=== PATIENT | female | born 1945 | race Caucasian/White ===

== ENCOUNTER 2020-04-15 07:41 | Inpatient (IN) | payer MEDICARE, OTHER ==
--- NOTE | 2020-04-15 07:44 | EDM.PDOC ---
ED HPI GENERAL MEDICAL PROBLEM - General Chief Complaint: Trauma Stated Complaint: fall Time Seen by Provider: 04/15/20 07:45 Source of Information: Reports: Patient, EMS, Old Records, RN, RN Notes Reviewed History Limitations: Reports: Other - History of Present Illness INITIAL COMMENTS - FREE TEXT/NARRATIVE: Pt arrives to ER from home by [facility] with report that at 0700HRS she felt lightheaded, fall and struck the back left side of her head resulting in a laceration. Pt admits to lightheadedness, but denies being off balance or "room spin" dizziness. Family members reported to EMS that pt seems to have slurred speech immediately following the fall, but she speech was clear by the time EMS arrived. The EMS team could not determine if the pt might have had a stroke or not, but due to daily Aspirin and the head injury, they did make her a trauma alert. Pt denies any injury other than her head. She denies neck pain, chest pain, shortness of breath, current dizziness or lightheadedness. She does have a history of syncope. Pt remembers the fall. Family reported pt had LOC to EMS, but pt states no LOC, as remembers everything. Later, pt also c/o lower right rib pain. TRAUMA: ARRIVAL TIME: 0744HRS C-COLLAR STATUS: No c-collar GCS ON ARRIVAL: 15 LONG SPINAL BOARD STATUS: No long spine board Onset: Today, Sudden Onset Date: 04/15/20 Onset Time: 07:00 Location: Reports: Head Quality: Reports: Ache Severity: Mild Improves with: Reports: None Worsens with: Reports: None Associated Symptoms: Reports: No Other Symptoms - Related Data Allergies Allergy/AdvReac Type Severity Reaction Status Date / Time Penicillins Allergy Rash Verified 04/24/14 10:46 Home Meds: Home Meds Aspirin [Ecotrin EC] 1 tab PO DAILY 04/24/14 [History] Metoprolol Succinate [Toprol Xl] 1 tab PO BID 04/24/14 [History] Multivitamin/Iron/Folic Acid [Multi-Day Plus Iron Tablet] 1 tab PO DAILY 04/24/14 [History] Past Medical History HEENT History: Reports: Impaired Vision (Wears glasses) Cardiovascular History: Reports: Hypertension, Syncope Social & Family History - Family History Family Medical History: No Pertinent Family History - Living Situation & Occupation Living situation: Reports: , Alone Occupation: Employed Review of Systems - Review of Systems Review Of Systems: Comprehensive ROS is negative, except as noted in HPI. ED EXAM, GENERAL - Physical Exam Exam: See Below Free Text/Narrative:: PRIMARY TRAUMA SURVEY (0749HRS): AIRWAY: Patent nasal and oral airways, conversant with normal speech, no evidence of airway obstruction. BREATHING: Spontaneous respirations, symmetric chest rise and fall, non-labored breathing. CIRCULATION: No central, peripheral, or perioral cyanosis. Heart regular rate and rhythm, non-muffled, no murmur. Intact distal pulses and capillary refill x all 4 distal extremities. DEFORMITY/DISABILITY: Head normal cephalic, 1.5cm linear laceration to left posterior scalp; Neck no c-collar on arrival. C-spine cleared by history and exam, confirmed by CT. Chest with mild right lower chest wall tenderness. Abdomen soft, non-tender, benign to exam. Pelvis stable. Upper extremities non- tender, atraumatic. Lower extremities non-tender, atraumatic. No active bleeding, no long bone deformities. No acute motor or sensory deficits. CN II- XII intact. GCS 15 on arrival. EXPOSURE: Skin warm and dry. SECONDARY TRAUMA SURVEY (810HRS): see below Exam Limited By: No Limitations General Appearance: Alert, WD/WN, No Apparent Distress Eye Exam: Bilateral Eye: EOMI, Normal Inspection, PERRL Nose: Normal Inspection, Normal Mucosa, No Blood Throat/Mouth: Normal Inspection, Normal Lips, Normal Teeth, Normal Gums, Normal Oropharynx, Normal Voice, No Airway Compromise Head: Normocephalic, Other (Scalp laceration) Neck: Normal Inspection, Supple, Non-Tender, Full Range of Motion Respiratory/Chest: No Respiratory Distress, Lungs Clear, Normal Breath Sounds, No Accessory Muscle Use, Chest Non-Tender Cardiovascular: Normal Peripheral Pulses, Regular Rate, Rhythm, No Edema, No Gallop, No JVD, No Murmur, No Rub GI/Abdominal: Normal Bowel Sounds, Soft, Non-Tender, No Organomegaly, No Distention, No Abnormal Bruit, No Mass Back Exam: Normal Inspection, Full Range of Motion, NT Extremities: Normal Inspection, Normal Range of Motion, Non-Tender, Normal Ca pillary Refill, No Pedal Edema Neurological: Alert, Oriented, CN II-XII Intact, Normal Cognition, Normal Gait, No Motor/Sensory Deficits, Other (GCS at 1 hour: 15) Psychiatric: Normal Affect, Normal Mood Skin Exam: Warm, Dry, Normal Color, No Rash, Wound/Incision (Left occipital scalp has a 1.25cm linear laceration to depth of subcutaneous tissue.) ED TRAUMA PROCEDURES - Laceration/Wound Repair Left Posterior Head Lac/Wound Length In cm: 1.3 Appearance: Subcutaneous, Linear Distal NVT: Neuro & Vascular Intact Anesthetic Type: Local Local Anesthesia - Bupivicaine (Marcaine): Other (1% with EPI) Local Anesthetic Volume: 4cc Skin Prep: Chlorhexidine (Hibiciens), Saline Saline Irrigation (cc's): 250 Exploration/Debridement/Repair: Wound Explored, In a Bloodless Field, Explored to Base Closed With: [place] # of Sutures: 4 (tona) Suture Type: Interrupted Drain Placement: No Sterile Dressing Applied: None Tetanus Status Addressed: Yes Complications: No #1 Interpretation EKG Date: 04/15/20 Time: 08:02 Rhythm: Other (SR) Rate (Beats/Min): 65 Vancourt: Normal P-Wave: Present (Possible left atrial enlargement) QRS: Normal ST-T: Normal QT: Normal Comparison: No Change Course - Vital Signs Last Recorded V/S: VS on paper trauma chart: reviewed by me - Orders/Labs/Meds Orders: Active Orders 24 hr Category Date Time Status Blood Glucose Check, Bedside [RC] ONETIME Care 04/15/20 07:44 Active EKG 12 Lead [EKG Documentation Completion] [RC] STAT Care 04/15/20 07:44 Active Orthostatic Vital Signs [RC] ASDIRECTED Care 04/15/20 08:00 Active Peripheral IV Care [RC] . DIRECTED Care 04/15/20 07:45 Active Vaccines to be Administered [RC] PER UNIT ROUTINE Care 04/15/20 07:59 Active DRUG SCREEN URINE BIORAD [URCHEM] Stat Lab 04/15/20 07:44 Ordered UA RFX WYATT AND CULT IF INDIC [URIN] Stat Lab 04/15/20 07:45 Ordered Sodium Chloride 0.9% [Saline Flush] Med 04/15/20 07:44 Active 10 ml FLUSH ASDIRECTED PRN Peripheral IV Insertion Adult [OM.PC] Stat Oth 04/15/20 07:45 Ordered Medication Orders Sodium Chloride (Saline Flush) 10 ml FLUSH ASDIRECTED PRN PRN Reason: Keep Vein Open Last Admin: 04/15/20 08:38 Dose: 10 ml Documented by: DELISA Labs: Laboratory Tests 04/15/20 04/15/20 04/15/20 Range/Units 07:59 07:59 07:59 WBC 6.2 (5.0-10.0) 10^3/uL RBC 4.40 (4.2-5.4) 10^6/uL Hgb 12.5 (12.0-16.0) g/dL Hct 37.4 (37.0-47.0) % MCV 85.0 (80-100) fL MCH 28.4 (27.0-34.0) pg MCHC 33.4 (33.0-35.0) g/dL Plt Count 223 (150-450) 10^3/uL Neut % (Auto) 62.5 (42.2-75.2) % Lymph % (Auto) 20.1 L (20.5-50.1) % Roberts % (Auto) 12.8 H (2-8) % Eos % (Auto) 4.4 H (1.0-3.0) % Baso % (Auto) 0.2 (0.0-1.0) % Add Manual Diff Yes Neutrophils % (Manual) 59 (42-75) % Band Neutrophils % 8 % Lymphocytes % (Manual) 17 L (20-50) % Monocytes % (Manual) 11 H (2-8) % Eosinophils % (Manual) 5 H (1-3) % PT 10.0 (9.0-12.0) SEC INR 1.1 (0.9-1.2) APTT 24.1 (22.0-34.0) SEC Sodium 139 (136-145) mmol/L Potassium 3.4 L (3.5-5.1) mmol/L Chloride 100 (98-107) mmol/L Carbon Dioxide 30 (21-32) mmol/L Anion Gap 12.4 (7-13) mEq/L BUN 21 H (7-18) mg/dL Creatinine 0.91 (0.55-1.02) mg/dL Est Cr Clr Drug Dosing TNP Estimated GFR (MDRD) > 60 BUN/Creatinine Ratio 23.1 (No establ ref range) Glucose 101 H (74-99) mg/dL Calcium 9.2 (8.5-10.1) mg/dL Total Bilirubin 0.6 (0.2-1.0) mg/dL AST 18 (15-37) U/L ALT 23 (14-59) U/L Alkaline Phosphatase 38 L (46-116) U/L Troponin I < 0.017 (0.000-0.056) ng/mL C-Reactive Protein 0.5 (0.0-0.9) mg/dL Total Protein 7.7 (6.4-8.2) g/dL Albumin 3.8 (3.4-5.0) g/dL Globulin 3.9 Albumin/Globulin Ratio 1.0 Amylase 36 (25-115) U/L Lipase 54 L (73-393) U/L Ethyl Alcohol < 3 (0) mg/dL Meds: Medications Generic Name Dose Route Start Last Admin Trade Name Freq PRN Reason Stop Dose Admin Sodium Chloride 10 ml 04/15/20 07:44 04/15/20 08:38 Saline Flush FLUSH 10 ml ASDIRECTED PRN Administration Keep Vein Open Discontinued Medications Generic Name Dose Route Start Last Admin Trade Name Freq PRN Reason Stop Dose Admin Acetaminophen 650 mg 04/15/20 08:43 04/15/20 08:52 Tylenol PO 04/15/20 08:44 650 mg NOW ONE Administration Diphtheria/Tetanus/Acell Pertussis 0.5 ml 04/15/20 07:59 04/15/20 08:37 Boostrix IM 04/15/20 08:00 0.5 ml .ONCE ONE Administration Sodium Chloride 1,000 mls @ 999 mls/hr 04/15/20 08:00 04/15/20 08:37 Normal Saline IV 04/15/20 09:00 999 mls/hr .BOLUS ONE Administration Lidocaine/Epinephrine 20 ml 04/15/20 07:59 04/15/20 08:37 Xylocaine 1% With Epinephrine 1:100,000 INFILT 04/15/20 08:00 20 ml ONETIME ONE Administration - Radiology Interpretation Free Text/Narrative:: [facility] [place] [facility] Final Radiology Report Call: [phone] assistance Online chat: [email or web address] Name: QUANG SCANLON Age: 74Years F Date: 04/15/2020 SSN: -- : 1945 Study: CT HEAD WO CONT Requesting Physician: MARIAH BA Images: 139 Addl Studies: Provided Clinical History: Fall, syncope, slurred speech, hit head Contrast: Without Contrast Medium: Contrast Amount: Contrast Method: Page 1 of 2 PROCEDURE INFORMATION: Exam: CT Head Without Contrast Exam date and time: 04/15/2020 7:48 AM Age: 74 years old Clinical indication: Injury or trauma; Fall; Blunt trauma (contusions or hematomas); Consciousness not specified; Additional info: Fall, syncope, slurred speech, hit head TECHNIQUE: Imaging protocol: Computed tomography of the head without contrast. Radiation optimization: All CT scans at this facility use at least one of these dose optimization techniques: automated exposure control; mA and/or kV adjustment per patient size (includes targeted exams where dose is matched to clinical indication); or iterative reconstruction. COMPARISON: No relevant prior exams. FINDINGS: Brain: Small area of encephalomalacia in the left frontal lobe. No acute intracranial changes. No evidence of acute ischemia. No hemorrhage. No mass or mass effect. No abnormal extra-axial fluid collections. Cerebral ventricles: No ventriculomegaly. Bones/joints: Unremarkable. No acute fracture. Paranasal sinuses: Visualized sinuses are unremarkable. No fluid levels. Mastoid air cells: Visualized mastoid air cells are well aerated. Soft tissues: Swelling of the left parietal scalp. IMPRESSION: No acute intracranial changes. Thank you for allowing us to participate in the care of your patient. QUANG SCANLON | Final Radiology Report CONFIDENTIALITY STATEMENT This report is intended only for use by the referring physician, and only in accordance with law. If you received this in error, call [phone]. Page 2 of 2 Dictated and Authenticated by: Ervin Machado MD 04/15/2020 8:01 AM Central Time ([place] & [place]) [facility] Final Radiology Report Call: [phone] assistance Online chat: [email or web address] Name: QUANG SCANLON Age: 74Years F Date: 04/15/2020 SSN: -- : 1945 Study: CT CERVICAL SPINE WO CONT Requesting Physician: MARIAH BA Images: 317 Addl Studies: Provided Clinical History: Fall, injury Contrast: Without Contrast Medium: Contrast Amount: Contrast Method: Page 1 of 2 PROCEDURE INFORMATION: Exam: CT Cervical Spine Without Contrast Exam date and time: 04/15/2020 7:48 AM Age: 74 years old Clinical indication: Injury or trauma; Fall; Blunt trauma; Additional info: Fall, injury TECHNIQUE: Imaging protocol: Computed tomography images of the cervical spine without contrast. Radiation optimization: All CT scans at this facility use at least one of these dose optimization techniques: automated exposure control; mA and/or kV adjustment per patient size (includes targeted exams where dose is matched to clinical indication); or iterative reconstruction. COMPARISON: No relevant prior exams. FINDINGS: Bones/joints: No fractures. Hypertrophy and degeneration of the facet joints. Normal alignment. Discs/Spinal canal/Neural foramina: The disc spaces are maintained. Small marginal endplate osteophytes at multiple levels. Lungs: Lung apices are normal. Soft tissues: Unremarkable. IMPRESSION: 1. No fractures or dislocations. 2. Degenerative facet joint arthropathy. 3. Degenerative disc disease. Thank you for allowing us to participate in the care of your patient. QUANG SCANLON | Final Radiology Report CONFIDENTIALITY STATEMENT This report is intended only for use by the referring physician, and only in accordance with law. If you received this in error, call [phone]. Page 2 of 2 Dictated and Authenticated by: Ervin Machado MD 04/15/2020 8:06 AM Central Time ([place] & [place]) [facility] Final Radiology Report Call: [phone] assistance Online chat: [email or web address] Name: QUANG SCANLON Age: 74Years F Date: 04/15/2020 SSN: -- : 1945 Study: CR CHEST 1V FRONTAL Requesting Physician: MARIAH BA Images: 1 Addl Studies: Provided Clinical History: chest pain Contrast: Contrast Medium: Contrast Amount: Contrast Method: CONFIDENTIALITY STATEMENT This report is intended only for use by the referring physician, and only in accordance with law. If you received this in error, call [phone]. Page 1 of 1 PROCEDURE INFORMATION: Exam: XR Chest Exam date and time: 04/15/2020 8:18 AM Age: 74 years old Clinical indication: Chest pain TECHNIQUE: Imaging protocol: XR of the chest Views: 1 view. COMPARISON: No relevant prior exams. FINDINGS: Lungs: Unremarkable. No consolidation. Pleural spaces: Unremarkable. No pleural effusion. No pneumothorax. Heart/Mediastinum: Mild diffuse cardiac enlargement. Bones/joints: Unremarkable. IMPRESSION: No acute cardiopulmonary disease. Thank you for allowing us to participate in the care of your patient. Dictated and Authenticated by: Ervin Machado MD 04/15/2020 8:22 AM Central Time ([place] & [place]) - Re-Assessments/Exams Free Text/Narrative Re-Assessment/Exam: 04/15/20 Pt is not orthostatic, but has profound postural dizziness without drop in BP or HR. 04/15/20 09:59 After one liter NS IV bolus pt is still positionally lightheaded and unsteady with sit/standing, without drop of BP or HR. Plan to admit pt to observation to hospitalist. Departure - Departure Time of Disposition: 10:00 Disposition: Refer to Observation Condition: Good, Undetermined Clinical Impression: Syncope Scalp laceration Qualifiers: Encounter type: initial encounter Qualified Code(s): S01.01XA - Laceration without foreign body of scalp, initial encounter Fall as cause of accidental injury at home as place of occurrence Qualifiers: Encounter type: initial encounter Qualified Code(s): W19.XXXA - Unspecified f all, initial encounter - Discharge Information *PRESCRIPTION DRUG MONITORING PROGRAM REVIEWED*: Not Applicable *COPY OF PRESCRIPTION DRUG MONITORING REPORT IN PATIENT ELEAZAR: Not Applicable Forms: ED Department Discharge - My Orders Last 24 Hours: My Active Orders 04/15/20 07:44 Blood Glucose Check, Bedside [RC] ONETIME EKG 12 Lead [EKG Documentation Completion] [RC] STAT DRUG SCREEN URINE BIORAD [URCHEM] Stat Sodium Chloride 0.9% [Saline Flush] 10 ml FLUSH ASDIRECTED PRN 04/15/20 07:45 Peripheral IV Care [RC] . DIRECTED UA RFX WYATT AND CULT IF INDIC [URIN] Stat Peripheral IV Insertion Adult [OM.PC] Stat 04/15/20 07:59 Vaccines to be Administered [RC] PER UNIT ROUTINE 04/15/20 08:00 Orthostatic Vital Signs [RC] ASDIRECTED - Assessment/Plan Last 24 Hours: My Active Orders 04/15/20 07:44 Blood Glucose Check, Bedside [RC] ONETIME EKG 12 Lead [EKG Documentation Completion] [RC] STAT DRUG SCREEN URINE BIORAD [URCHEM] Stat Sodium Chloride 0.9% [Saline Flush] 10 ml FLUSH ASDIRECTED PRN 04/15/20 07:45 Peripheral IV Care [RC] . DIRECTED UA RFX WYATT AND CULT IF INDIC [URIN] Stat Peripheral IV Insertion Adult [OM.PC] Stat 04/15/20 07:59 Vaccines to be Administered [RC] PER UNIT ROUTINE 04/15/20 08:00 Orthostatic Vital Signs [RC] ASDIRECTED
[2020-04-15] MEDS ORDERED: Diphtheria,Pertussis(Acell),Tetanus Vaccine 0.5 ML Syringe IM ONE (07:59)
[2020-04-15] MEDS ORDERED: Lidocaine 1% with EPINEPHrine 1:100,000 20 ML MDV INFILT ONE (07:59)
[2020-04-15] MEDS ORDERED: Sodium Chloride 0.9% 1,000 ML IV ONE (08:00)
--- NOTE | 2020-04-15 08:01 | CT ---
PROCEDURE INFORMATION: Exam: CT Head Without Contrast Exam date and time: 04/15/2020 7:48 AM Age: 74 years old Clinical indication: Injury or trauma; Fall; Blunt trauma (contusions or hematomas); Consciousness not specified; Additional info: Fall, syncope, slurred speech, hit head TECHNIQUE: Imaging protocol: Computed tomography of the head without contrast. Radiation optimization: All CT scans at this facility use at least one of these dose optimization techniques: automated exposure control; mA and/or kV adjustment per patient size (includes targeted exams where dose is matched to clinical indication); or iterative reconstruction. COMPARISON: No relevant prior exams. FINDINGS: Brain: Small area of encephalomalacia in the left frontal lobe. No acute intracranial changes. No evidence of acute ischemia. No hemorrhage. No mass or mass effect. No abnormal extra-axial fluid collections. Cerebral ventricles: No ventriculomegaly. Bones/joints: Unremarkable. No acute fracture. Paranasal sinuses: Visualized sinuses are unremarkable. No fluid levels. Mastoid air cells: Visualized mastoid air cells are well aerated. Soft tissues: Swelling of the left parietal scalp. IMPRESSION: No acute intracranial changes.
--- NOTE | 2020-04-15 08:07 | CT ---
PROCEDURE INFORMATION: Exam: CT Cervical Spine Without Contrast Exam date and time: 04/15/2020 7:48 AM Age: 74 years old Clinical indication: Injury or trauma; Fall; Blunt trauma; Additional info: Fall, injury TECHNIQUE: Imaging protocol: Computed tomography images of the cervical spine without contrast. Radiation optimization: All CT scans at this facility use at least one of these dose optimization techniques: automated exposure control; mA and/or kV adjustment per patient size (includes targeted exams where dose is matched to clinical indication); or iterative reconstruction. COMPARISON: No relevant prior exams. FINDINGS: Bones/joints: No fractures. Hypertrophy and degeneration of the facet joints. Normal alignment. Discs/Spinal canal/Neural foramina: The disc spaces are maintained. Small marginal endplate osteophytes at multiple levels. Lungs: Lung apices are normal. Soft tissues: Unremarkable. IMPRESSION: 1. No fractures or dislocations. 2. Degenerative facet joint arthropathy. 3. Degenerative disc disease.
--- NOTE | 2020-04-15 08:23 | CR ---
PROCEDURE INFORMATION: Exam: XR Chest Exam date and time: 04/15/2020 8:18 AM Age: 74 years old Clinical indication: Chest pain TECHNIQUE: Imaging protocol: XR of the chest Views: 1 view. COMPARISON: No relevant prior exams. FINDINGS: Lungs: Unremarkable. No consolidation. Pleural spaces: Unremarkable. No pleural effusion. No pneumothorax. Heart/Mediastinum: Mild diffuse cardiac enlargement. Bones/joints: Unremarkable. IMPRESSION: No acute cardiopulmonary disease.
[2020-04-15 08:24] LABS: PTT,PARTIAL THROMBOPLSTIN TIME 24.1 SEC (22.0-34.0)
[2020-04-15 08:27] LABS: ANION GAP 12.4 mEq/L (7-13); CHLORIDE,CL 100 mmol/L (98-107); SODIUM,NA 139 mmol/L (136-145)
[2020-04-15] MEDS: Sodium Chloride 0.9% 10 ML Syringe FLUSH PRN (08:38)
[2020-04-15] MEDS ORDERED: Acetaminophen 325 MG Tab PO ONE (08:43)
[2020-04-15] MEDS ORDERED: Aspirin 81 MG Tab.EC PO ONE (12:33)
--- NOTE | 2020-04-15 12:41 | MR ---
PROCEDURE INFORMATION: Exam: MR Head Without Contrast Exam date and time: 04/15/2020 12:07 PM Age: 74 years old Clinical indication: Other: Acute CVA TECHNIQUE: Imaging protocol: MR of the head without contrast. COMPARISON: CT Head wo Cont 04/15/2020 7:48 AM FINDINGS: Brain: Restricted diffusion in the right frontotemporal area. No other areas of acute ischemia. No hemorrhage. No mass or mass effect. Again noted is the small area of encephalomalacia in the left frontal lobe. No abnormal extra-axial fluid collections. Cerebral ventricles: Normal. No ventriculomegaly. Bones/joints: Unremarkable. Paranasal sinuses: Normal as visualized. No acute sinusitis. Mastoid air cells: Normal as visualized. No mastoid effusion. Orbital cavity: Unremarkable. Soft tissues: Unremarkable. IMPRESSION: Acute ischemia in the right frontotemporal area.
[2020-04-15] MEDS: Heparin Sodium 5,000 Units/ML Vial SUBCUT SCH ×2 (13:55→21:37)
[2020-04-15] MEDS ORDERED: Iopamidol 755 Mg/ML 100 ML Bottle IVPUSH ONE (14:26)
--- NOTE | 2020-04-15 15:58 | CT ---
PROCEDURE INFORMATION: Exam: CT Neck With Contrast Exam date and time: 04/15/2020 3:10 PM Age: 74 years old Clinical indication: Other: Acute CVA TECHNIQUE: Imaging protocol: Computed tomography of the neck with intravenous contrast. Radiation optimization: All CT scans at this facility use at least one of these dose optimization techniques: automated exposure control; mA and/or kV adjustment per patient size (includes targeted exams where dose is matched to clinical indication); or iterative reconstruction. Contrast material: ISOVUE 370; Contrast volume: 75 ml; Contrast route: INTRAVENOUS (IV); COMPARISON: CT Cervical Spine wo Cont 04/15/2020 7:48 AM FINDINGS: Right common carotid artery: No stenosis. No dissection or occlusion. Right internal carotid artery: Nonflow limiting plaque of the right internal carotid artery bulb. The artery is narrowed by 20-30%. The remaining artery is patent. No flow limiting stenosis or occlusion. Right external carotid artery: No occlusion or stenosis of the origin. Right vertebral artery: No stenosis. No dissection or occlusion. Left common carotid artery: No stenosis. No dissection or occlusion. Left internal carotid artery: Nonflow limiting plaque of the left internal carotid artery bulb. The artery is narrowed by 20-30%. The remaining artery is patent. No flow limiting stenosis or occlusion. Left external carotid artery: No occlusion or stenosis of the origin. 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 Only short segments opacify. Bones/joints: Moderate degenerative changes of the cervical spine. No fractures. Soft tissues: Normal. No significant soft tissue swelling. Lungs: Ground-glass opacity in the upper lungs. IMPRESSION: 1. 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 2. Nonflow limiting plaque of both carotid bulbs. REFERENCES: NASCET CRITERIA. The degree of internal carotid artery stenosis is based on NASCET criteria. Normal is no stenosis. Mild is less than 50% stenosis. Moderate is 50-69% stenosis. Severe is 70% to 99% stenosis. Total occlusion is no detectable patent lumen.
--- NOTE | 2020-04-15 16:01 | CT ---
PROCEDURE INFORMATION: Exam: CT Head With Contrast Exam date and time: 04/15/2020 3:10 PM Age: 74 years old Clinical indication: Other: Acute CVA TECHNIQUE: Imaging protocol: Computed tomography of the head with intravenous contrast. Radiation optimization: All CT scans at this facility use at least one of these dose optimization techniques: automated exposure control; mA and/or kV adjustment per patient size (includes targeted exams where dose is matched to clinical indication); or iterative reconstruction. Contrast material: ISOVUE 370; Contrast volume: 75 ml; Contrast route: INTRAVENOUS (IV); COMPARISON: CT Head wo Cont 04/15/2020 7:48 AM FINDINGS: ANTERIOR CIRCULATION: Right internal carotid artery: Unremarkable. Intracranial segment is patent with no significant stenosis. No aneurysm. Right middle cerebral artery: Unremarkable. No occlusion or significant stenosis. No aneurysm. Right anterior cerebral artery: Unremarkable. No occlusion or significant stenosis. No aneurysm. Left internal carotid artery: Unremarkable. Intracranial segment is patent with no significant stenosis. No aneurysm. Left middle cerebral artery: Unremarkable. No occlusion or significant stenosis. No aneurysm. Left anterior cerebral artery: Unremarkable. No occlusion or significant stenosis. No aneurysm. POSTERIOR CIRCULATION: Right vertebral artery: Unremarkable. No occlusion or significant stenosis. No aneurysm. Left vertebral artery: Opacifies, probably representing back fill over the confluence. Basilar artery: Unremarkable. No occlusion or significant stenosis. No aneurysm. Right posterior cerebral artery: Unremarkable. No occlusion or significant stenosis. No aneurysm. Left posterior cerebral artery: Unremarkable. No occlusion or significant stenosis. No aneurysm. Brain: No definite mass, mass effect, or midline shift. Cerebral ventricles: No ventriculomegaly. Bones/joints: Unremarkable. No acute fracture. Soft tissues: Swelling of the left parietal scalp. Skin tona in place. IMPRESSION: Unremarkable intracranial vasculature.
[2020-04-15] MEDS: Acetaminophen 325 MG Tab PO PRN (19:41)
[2020-04-15] MEDS: atorvaSTATin 20 MG Tab PO SCH (20:41)
--- NOTE | 2020-04-15 22:05 | HP ---
HISTORY OF PRESENT ILLNESS: This is a 74-year-old woman with past medical history of hypertension, prior syncope, hypothyroidism. She was brought in for near syncope and head laceration. The patient woke up per her recollection around 5 a.m., asymptomatic. She ate a little bit of food. She was not dizzy upon awakening. At some point, at approximately 7 a.m. she was in the kitchen, she became momentarily dizzy and fell hitting her head. She denies losing consciousness. She crawled to the phone and called her daughter. Daughter arrived and found her with head laceration which had stopped bleeding, and so she estimates that the mom probably fell a bit earlier than she thought. The patient was brought into the emergency room. She was noted orthostatic and received IV fluids. Her head laceration was treated with tona. She was further noted with a profound left pronator drift and flattening of the left nasolabial fold, ataxia of the left upper extremity, and slight slurred speech. CT head in the emergency room did not reveal any bleeding, however, followup MRI confirmed right frontotemporal stroke. Given unclear timeline and even if the fall truly occurred at 0700, the patient was out of window for tPA and this was further complicated by blunt head trauma with bleeding requiring tona. This case was discussed on-call neurology at referral hospital and as well as family members, namely patient's daughter and all were in agreement that patient may remain at [facility] as management will not change and family would like her to stay close. REVIEW OF SYSTEMS: Negative for 14 systems except as specifically noted above. PAST MEDICAL HISTORY: As I mentioned, hypertension, syncope, and hypothyroidism. PAST SURGICAL HISTORY: None. SOCIAL HISTORY: Lifelong nonsmoker. FAMILY HISTORY: Father with throat cancer. ALLERGIES: Include anaphylaxis to penicillin. EKG nonischemic. LABORATORY DATA: Include a normal UA, unremarkable CBC. Chemistry panel remarkable for mildly low potassium of 3.4. PHYSICAL EXAMINATION: General: Awake, alert, and oriented x2. Neurologic: Speech mildly slurred. There is mild flattening of the left nasolabial fold. Strength is 5/5 in all extremities. There is loss of sensation in the left upper extremity. There is ataxia SMS test on the left upper extremity. Normal cerebellar signs in the lower extremities with heel to cruz test. The extraocular movements are intact. The patient does have mild neglect of the left upper extremity. Gait, with supervision of 2 physical therapists and with a walker, is mostly normal but she does lean to the left. HEENT: Sclerae are normal. Heart: No murmurs. Heart rate is regular. Lungs: Lung sounds are clear bilaterally. Abdomen: Soft, nondistended, nontender, without rebound, with normal bowel sounds. Extremities: There is only trace bipedal pitting edema. There are mild abrasions bilateral knee. PLAN: 1. 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 This was confirmed on the brain MRI. The patient will require stroke workup including hemoglobin A1c, lipid panel, echo, at least 24-hour telemetry monitoring, carotid Dopplers, which may be deferred in lieu of CTA of the head and neck. The patient will be treated with dual anti-platelet therapy with aspirin and Plavix, high-intensity statin, and any other risk factor modification as necessary. We will maintain permissive hypertension for at least the next 20 to 24 hours. If large vessel occlusion is seen on the CTA head and neck, patient will need to be transferred to a tertiary care center, and this has been ordered stat. 2. Head laceration. This was treated in the emergency room, received a tetanus booster, tona will need to come out in 7 to 10 days. 3. Hypertension. As I mentioned, patient will be in permissive hypertension. We will hold blood pressure medications at this time. Restart as needed. 4. Hypothyroidism. Continue with levothyroxine. 5. Deep venous thrombosis prophylaxis will be with subcutaneous heparin. 6. The patient is full code. The family has been updated. [facility] /[id number]
[2020-04-16] MEDS: Levothyroxine 50 MCG Tab PO SCH (06:21)
[2020-04-16] MEDS: Heparin Sodium 5,000 Units/ML Vial SUBCUT SCH ×3 (06:23→21:04)
[2020-04-16 07:08] LABS: HEMOGLOBIN A1C 5.3 % (<5.7)
[2020-04-16 07:11] LABS: ANION GAP 7.4 mEq/L (7-13); CHLORIDE,CL 101 mmol/L (98-107); SODIUM,NA 136 mmol/L (136-145)
[2020-04-16] MEDS: Potassium Chloride 10 MEQ Tab.ER PO SCH (09:36)
[2020-04-16] MEDS: Clopidogrel 75 MG Tab PO SCH (09:36)
[2020-04-16] MEDS: Multivitamins, Therapeutic with Minerals Tab PO SCH (09:36)
[2020-04-16] MEDS: Aspirin 81 MG Tab.EC PO SCH (10:42)
[2020-04-16] MEDS: Acetaminophen 325 MG Tab PO PRN (15:50)
--- NOTE | 2020-04-16 18:19 | PCM.PN ---
- General Info Date of Service: 04/16/20 Subjective Update: Improved mental status and clarity of speech. Still w/ LUE weakness and apraxia. Improved sensation LUE. - Patient Data Vitals - Most Recent: Last Vital Signs Temp 97.2 F 04/16/20 16:00 Pulse 71 04/16/20 16:00 Resp 18 04/16/20 16:00 BP 112/62 04/16/20 16:00 Pulse Ox 96 04/16/20 16:00 Weight - Most Recent: 170 lb 3.2 oz I&O - Last 24 Hours: Intake & Output 04/16/20 04/16/20 04/16/20 06:59 14:59 22:59 Intake Total 200 1390 610 Output Total 650 500 Balance -450 890 610 Lab Results Last 24 Hours: Laboratory Results - last 24 hr 04/15/20 04/15/20 04/16/20 Range/Units 07:44 07:45 06:15 WBC 5.9 (5.0-10.0) 10^3/uL RBC 4.40 (4.2-5.4) 10^6/uL Hgb 12.5 (12.0-16.0) g/dL Hct 37.1 (37.0-47.0) % MCV 84.3 (80-100) fL MCH 28.4 (27.0-34.0) pg MCHC 33.7 (33.0-35.0) g/dL Plt Count 200 (150-450) 10^3/uL Sodium (136-145) mmol/L Potassium (3.5-5.1) mmol/L Chloride (98-107) mmol/L Carbon Dioxide (21-32) mmol/L Anion Gap (7-13) mEq/L BUN (7-18) mg/dL Creatinine (0.55-1.02) mg/dL Est Cr Clr Drug Dosing mL/min Estimated GFR (MDRD) Glucose (74-99) mg/dL Hemoglobin A1c (<5.7) % Calcium (8.5-10.1) mg/dL Phosphorus (2.6-4.7) mg/dL Magnesium (1.8-2.4) mg/dL Triglycerides (0-149) mg/dL Cholesterol (0-199) mg/dL LDL Cholesterol, Calc (0-100) mg/dL HDL Cholesterol (40-59) mg/dL Urine Color Yellow (YELLOW) Urine Appearance Clear (CLEAR) Urine pH 7.0 (5.0-9.0) Ur Specific [place] 1.015 (1.005-1.030) Urine Protein Negative (NEGATIVE) Urine Glucose (UA) Negative (NEGATIVE) Urine Ketones Negative (NEGATIVE) Urine Occult Blood Negative (NEGATIVE) Urine Nitrite Negative (NEGATIVE) Urine Bilirubin Negative (NEGATIVE) Urine Urobilinogen 0.2 (0.2-1.0) mg/dL Ur Leukocyte Esterase Small H (NEGATIVE) Urine RBC 0-5 /HPF Urine WBC 0-5 (0-5/HPF) /HPF Ur Epithelial Cells Few (NOT SEEN) /HPF Urine Bacteria Rare (0-FEW/HPF) /HPF Urine Mucus Rare (NOT SEEN) /LPF Urine Opiates Screen Negative (NEGATIVE) Ur Oxycodone Screen Negative (NEGATIVE) Urine Methadone Screen Negative (NEGATIVE) Ur Barbiturates Screen Negative (NEGATIVE) U Tricyclic Antidepress Negative (NEGATIVE) Ur Phencyclidine Scrn Negative (NEGATIVE) Ur Amphetamine Screen Negative (NEGATIVE) U Methamphetamines Scrn Negative (NEGATIVE) Urine MDMA Screen Negative (NEGATIVE) U Benzodiazepines Scrn Negative (NEGATIVE) Urine Cocaine Screen Negative (NEGATIVE) U Marijuana (THC) Screen Negative (NEGATIVE) 04/16/20 04/16/20 04/16/20 Range/Units 06:15 06:15 06:15 WBC (5.0-10.0) 10^3/uL RBC (4.2-5.4) 10^6/uL Hgb (12.0-16.0) g/dL Hct (37.0-47.0) % MCV (80-100) fL MCH (27.0-34.0) pg MCHC (33.0-35.0) g/dL Plt Count (150-450) 10^3/uL Sodium 136 (136-145) mmol/L Potassium 3.4 L (3.5-5.1) mmol/L Chloride 101 (98-107) mmol/L Carbon Dioxide 31 (21-32) mmol/L Anion Gap 7.4 (7-13) mEq/L BUN 12 (7-18) mg/dL Creatinine 0.80 (0.55-1.02) mg/dL Est Cr Clr Drug Dosing 56.88 mL/min Estimated GFR (MDRD) > 60 Glucose 91 (74-99) mg/dL Hemoglobin A1c 5.3 (<5.7) % Calcium 9.0 (8.5-10.1) mg/dL Phosphorus 3.7 (2.6-4.7) mg/dL Magnesium 1.8 (1.8-2.4) mg/dL Triglycerides 60 (0-149) mg/dL Cholesterol 181 (0-199) mg/dL LDL Cholesterol, Calc 104 H (0-100) mg/dL HDL Cholesterol 65 H (40-59) mg/dL Urine Color (YELLOW) Urine Appearance (CLEAR) Urine pH (5.0-9.0) Ur Specific [place] (1.005-1.030) Urine Protein (NEGATIVE) Urine Glucose (UA) (NEGATIVE) Urine Ketones (NEGATIVE) Urine Occult Blood (NEGATIVE) Urine Nitrite (NEGATIVE) Urine Bilirubin (NEGATIVE) Urine Urobilinogen (0.2-1.0) mg/dL Ur Leukocyte Esterase (NEGATIVE) Urine RBC /HPF Urine WBC (0-5/HPF) /HPF Ur Epithelial Cells (NOT SEEN) /HPF Urine Bacteria (0-FEW/HPF) /HPF Urine Mucus (NOT SEEN) /LPF Urine Opiates Screen (NEGATIVE) Ur Oxycodone Screen (NEGATIVE) Urine Methadone Screen (NEGATIVE) Ur Barbiturates Screen (NEGATIVE) U Tricyclic Antidepress (NEGATIVE) Ur Phencyclidine Scrn (NEGATIVE) Ur Amphetamine Screen (NEGATIVE) U Methamphetamines Scrn (NEGATIVE) Urine MDMA Screen (NEGATIVE) U Benzodiazepines Scrn (NEGATIVE) Urine Cocaine Screen (NEGATIVE) U Marijuana (THC) Screen (NEGATIVE) [facility] Results Last 24 Hours: Microbiology 04/15/20 10:00 Urine Culture - Preliminary Urine, Voided Med Orders - Current: Current Medications Acetaminophen (Tylenol) 650 mg PO Q4H PRN PRN Reason: Pain (Mild 1-3)/fever Last Admin: 04/16/20 15:50 Dose: 650 mg Documented by: Aspirin (Halfprin) 81 mg PO DAILY [facility] Last Admin: 04/16/20 10:42 Dose: 81 mg Documented by: Atorvastatin Calcium (Lipitor) 80 mg PO BEDTIME [facility] Last Admin: 04/15/20 20:41 Dose: 80 mg Documented by: Clopidogrel Bisulfate (Plavix) 75 mg PO DAILY [facility] Last Admin: 04/16/20 09:36 Dose: 75 mg Documented by: Heparin Sodium (Porcine) (Heparin Sodium) 5,000 units SUBCUT Q8HR [facility] Last Admin: 04/16/20 14:42 Dose: 5,000 units Documented by: Levothyroxine Sodium (Synthroid) 50 mcg PO ACBREAKFAST [facility] Last Admin: 04/16/20 06:21 Dose: 50 mcg Documented by: Multivitamins/Minerals (Vitamins And Minerals) 1 tab PO DAILY [facility] Last Admin: 04/16/20 09:36 Dose: 1 tab Documented by: Potassium Chloride (Klor-Con 10) 20 meq PO DAILY@0800 [facility] Last Admin: 04/16/20 09:36 Dose: 20 meq Documented by: Sodium Chloride (Saline Flush) 10 ml FLUSH ASDIRECTED PRN PRN Reason: Keep Vein Open Last Admin: 04/15/20 08:38 Dose: 10 ml Documented by: Discontinued Medications Acetaminophen (Tylenol) 650 mg PO NOW ONE Stop: 04/15/20 08:44 Last Admin: 04/15/20 08:52 Dose: 650 mg Documented by: Aspirin (Halfprin) 162 mg PO ONETIME ONE Stop: 04/15/20 12:34 Last Admin: 04/15/20 13:54 Dose: 162 mg Documented by: Diphtheria/Tetanus/Acell Pertussis (Boostrix) 0.5 ml IM .ONCE ONE Stop: 04/15/20 08:00 Last Admin: 04/15/20 08:37 Dose: 0.5 ml Documented by: Sodium Chloride (Normal Saline) 1,000 mls @ 999 mls/hr IV .BOLUS ONE Stop: 04/15/20 09:00 Last Admin: 04/15/20 08:37 Dose: 999 mls/hr Documented by: Iopamidol (Isovue-370 (76%)) 100 ml IVPUSH ONETIME ONE Stop: 04/15/20 14:27 Last Admin: 04/15/20 15:28 Dose: 75 ml Documented by: Lidocaine/Epinephrine (Xylocaine 1% With Epinephrine 1:100,000) 20 ml INFILT ONETIME ONE Stop: 04/15/20 08:00 Last Admin: 04/15/20 08:37 Dose: 20 ml Documented by: - Exam General: Alert, Oriented, No Acute Distress HEENT: Mucous Membr. Moist/[place]: Supple Lungs: Clear to Auscultation Cardiovascular: Regular Rate, Regular Rhythm, No Murmurs GI/Abdominal Exam: Normal Bowel Sounds, Soft, Non-Tender, No Distention Back Exam: Normal Inspection Extremities: Normal Inspection, No Pedal Edema Skin: Warm, Dry, Intact Neurological: Other (LUE 4+/5, apraxia, left facial droop) Psy/Mental Status: Alert, Normal Affect, Normal Mood - Patient Data Lab Results Last 24 hrs: Laboratory Results - last 24 hr 04/15/20 04/15/20 04/16/20 Range/Units 07:44 07:45 06:15 WBC 5.9 (5.0-10.0) 10^3/uL RBC 4.40 (4.2-5.4) 10^6/uL Hgb 12.5 (12.0-16.0) g/dL Hct 37.1 (37.0-47.0) % MCV 84.3 (80-100) fL MCH 28.4 (27.0-34.0) pg MCHC 33.7 (33.0-35.0) g/dL Plt Count 200 (150-450) 10^3/uL Sodium (136-145) mmol/L Potassium (3.5-5.1) mmol/L Chloride (98-107) mmol/L Carbon Dioxide (21-32) mmol/L Anion Gap (7-13) mEq/L BUN (7-18) mg/dL Creatinine (0.55-1.02) mg/dL Est Cr Clr Drug Dosing mL/min Estimated GFR (MDRD) Glucose (74-99) mg/dL Hemoglobin A1c (<5.7) % Calcium (8.5-10.1) mg/dL Phosphorus (2.6-4.7) mg/dL Magnesium (1.8-2.4) mg/dL Triglycerides (0-149) mg/dL Cholesterol (0-199) mg/dL LDL Cholesterol, Calc (0-100) mg/dL HDL Cholesterol (40-59) mg/dL Urine Color Yellow (YELLOW) Urine Appearance Clear (CLEAR) Urine pH 7.0 (5.0-9.0) Ur Specific [place] 1.015 (1.005-1.030) Urine Protein Negative (NEGATIVE) Urine Glucose (UA) Negative (NEGATIVE) Urine Ketones Negative (NEGATIVE) Urine Occult Blood Negative (NEGATIVE) Urine Nitrite Negative (NEGATIVE) Urine Bilirubin Negative (NEGATIVE) Urine Urobilinogen 0.2 (0.2-1.0) mg/dL Ur Leukocyte Esterase Small H (NEGATIVE) Urine RBC 0-5 /HPF Urine WBC 0-5 (0-5/HPF) /HPF Ur Epithelial Cells Few (NOT SEEN) /HPF Urine Bacteria Rare (0-FEW/HPF) /HPF Urine Mucus Rare (NOT SEEN) /LPF Urine Opiates Screen Negative (NEGATIVE) Ur Oxycodone Screen Negative (NEGATIVE) Urine Methadone Screen Negative (NEGATIVE) Ur Barbiturates Screen Negative (NEGATIVE) U Tricyclic Antidepress Negative (NEGATIVE) Ur Phencyclidine Scrn Negative (NEGATIVE) Ur Amphetamine Screen Negative (NEGATIVE) U Methamphetamines Scrn Negative (NEGATIVE) Urine MDMA Screen Negative (NEGATIVE) U Benzodiazepines Scrn Negative (NEGATIVE) Urine Cocaine Screen Negative (NEGATIVE) U Marijuana (THC) Screen Negative (NEGATIVE) 04/16/20 04/16/20 04/16/20 Range/Units 06:15 06:15 06:15 WBC (5.0-10.0) 10^3/uL RBC (4.2-5.4) 10^6/uL Hgb (12.0-16.0) g/dL Hct (37.0-47.0) % MCV (80-100) fL MCH (27.0-34.0) pg MCHC (33.0-35.0) g/dL Plt Count (150-450) 10^3/uL Sodium 136 (136-145) mmol/L Potassium 3.4 L (3.5-5.1) mmol/L Chloride 101 (98-107) mmol/L Carbon Dioxide 31 (21-32) mmol/L Anion Gap 7.4 (7-13) mEq/L BUN 12 (7-18) mg/dL Creatinine 0.80 (0.55-1.02) mg/dL Est Cr Clr Drug Dosing 56.88 mL/min Estimated GFR (MDRD) > 60 Glucose 91 (74-99) mg/dL Hemoglobin A1c 5.3 (<5.7) % Calcium 9.0 (8.5-10.1) mg/dL Phosphorus 3.7 (2.6-4.7) mg/dL Magnesium 1.8 (1.8-2.4) mg/dL Triglycerides 60 (0-149) mg/dL Cholesterol 181 (0-199) mg/dL LDL Cholesterol, Calc 104 H (0-100) mg/dL HDL Cholesterol 65 H (40-59) mg/dL Urine Color (YELLOW) Urine Appearance (CLEAR) Urine pH (5.0-9.0) Ur Specific [place] (1.005-1.030) Urine Protein (NEGATIVE) Urine Glucose (UA) (NEGATIVE) Urine Ketones (NEGATIVE) Urine Occult Blood (NEGATIVE) Urine Nitrite (NEGATIVE) Urine Bilirubin (NEGATIVE) Urine Urobilinogen (0.2-1.0) mg/dL Ur Leukocyte Esterase (NEGATIVE) Urine RBC /HPF Urine WBC (0-5/HPF) /HPF Ur Epithelial Cells (NOT SEEN) /HPF Urine Bacteria (0-FEW/HPF) /HPF Urine Mucus (NOT SEEN) /LPF Urine Opiates Screen (NEGATIVE) Ur Oxycodone Screen (NEGATIVE) Urine Methadone Screen (NEGATIVE) Ur Barbiturates Screen (NEGATIVE) U Tricyclic Antidepress (NEGATIVE) Ur Phencyclidine Scrn (NEGATIVE) Ur Amphetamine Screen (NEGATIVE) U Methamphetamines Scrn (NEGATIVE) Urine MDMA Screen (NEGATIVE) U Benzodiazepines Scrn (NEGATIVE) Urine Cocaine Screen (NEGATIVE) U Marijuana (THC) Screen (NEGATIVE) Result Diagrams: 04/16/20 06:15 04/16/20 06:15 [facility] Results Last 24 hrs: Microbiology 04/15/20 10:00 Urine Culture - Preliminary Urine, Voided Sepsis Event Note - Evaluation Sepsis Screening Result: No Definite Risk - Focused Exam Vital Signs: Vital Signs Temp Pulse Resp BP Pulse Ox Pulse Ox 04/16/20 16:00 97.2 F 71 18 112/62 96 04/16/20 12:07 98.8 F 67 20 141/67 H 100 04/16/20 11:47 97 04/16/20 08:19 99.1 F 68 20 145/69 H 100 - Problem List Review Problem List Initiated/Reviewed/Updated: No - My Orders Last 24 Hours: My Active Orders 04/15/20 17:54 Activity as Tolerated [RC] .Routine 04/15/20 21:00 atorvaSTATin [Lipitor] 80 mg PO BEDTIME 04/16/20 06:00 Levothyroxine [Synthroid] 50 mcg PO ACBREAKFAST 04/16/20 08:00 Potassium Chloride [Klor-Con 10] 20 meq PO DAILY@0800 04/16/20 09:00 Aspirin [Halfprin] 81 mg PO DAILY Clopidogrel [Plavix] 75 mg PO DAILY Multivitamins/Minerals [Vitamins and Minerals] 1 tab PO DAILY - Assessment Assessment:: #acute right MCA stroke - confirmed right fronto-temporal infarction - CTA also w/ left vertebral occlusion - this lesion is unrelated to the acute CVA and likely chronic - d/w neuro at [facility] GF - c/w DAPT, high intensity statin - PT/OT per therapist - passed swallow eval - restart BP control #HT - off permissive HT - restart BP meds sequentially - restart toprol xl 100 bid #head laceration - tona to come out after 7-10 days #hypothyroidism - c/w levothyroxine PPX - [facility] Full code
[2020-04-16] MEDS: atorvaSTATin 20 MG Tab PO SCH (21:04)
[2020-04-16] MEDS: Sodium Chloride 0.9% 10 ML Syringe FLUSH PRN (21:05)
[2020-04-17] MEDS: Heparin Sodium 5,000 Units/ML Vial SUBCUT SCH (06:13)
[2020-04-17] MEDS: Levothyroxine 50 MCG Tab PO SCH (06:14)
[2020-04-17] MEDS ORDERED: amLODIPine 5 MG Tab PO SCH (09:00)
[2020-04-17] MEDS ORDERED: Metoprolol Tartrate 5 MG/5 ML SDV IVPUSH ONE (09:42)
[2020-04-17] MEDS: Apixaban 5 MG Tab PO SCH ×2 (09:56→20:38)
[2020-04-17] MEDS: Potassium Chloride 10 MEQ Tab.ER PO SCH (09:56)
[2020-04-17] MEDS: Multivitamins, Therapeutic with Minerals Tab PO SCH (09:57)
[2020-04-17] MEDS: Aspirin 81 MG Tab.EC PO SCH (09:58)
[2020-04-17] MEDS: Clopidogrel 75 MG Tab PO SCH (10:00)
--- NOTE | 2020-04-17 10:49 | PCM.PN ---
- General Info Date of Service: 04/17/20 Subjective Update: Improved LUE strength and coordination. Good mental status. Overnight w/ no tele events. Shortly after am rounds pt noted in rapid afib w/ HR in 140-150s. She was asymptomatic. HR improved w/ 5 mg IVP lopressor. - Patient Data Vitals - Most Recent: Last Vital Signs Temp 97.8 F 04/17/20 08:18 Pulse 118 H 04/17/20 09:51 Resp 20 04/17/20 08:18 BP 141/69 H 04/17/20 09:51 Pulse Ox 97 04/17/20 08:18 Weight - Most Recent: 170 lb 3.2 oz I&O - Last 24 Hours: Intake & Output 04/16/20 04/17/20 04/17/20 22:59 06:59 14:59 Intake Total 948 400 Output Total 250 300 Balance 698 -300 400 [facility] Results Last 24 Hours: Microbiology 04/15/20 10:00 Urine Culture - Final Urine, Voided Streptococcus Agalactiae Grp B Med Orders - Current: Current Medications Acetaminophen (Tylenol) 650 mg PO Q4H PRN PRN Reason: Pain (Mild 1-3)/fever Last Admin: 04/16/20 15:50 Dose: 650 mg Documented by: Apixaban (Eliquis) 5 mg PO BID [facility] Last Admin: 04/17/20 09:56 Dose: 5 mg Documented by: Aspirin (Halfprin) 81 mg PO DAILY [facility] Last Admin: 04/17/20 09:58 Dose: 81 mg Documented by: Atorvastatin Calcium (Lipitor) 80 mg PO BEDTIME [facility] Last Admin: 04/16/20 21:04 Dose: 80 mg Documented by: Levothyroxine Sodium (Synthroid) 50 mcg PO ACBREAKFAST [facility] Last Admin: 04/17/20 06:14 Dose: 50 mcg Documented by: Metoprolol Succinate (Toprol Xl) 100 mg PO BID [facility] Multivitamins/Minerals (Vitamins And Minerals) 1 tab PO DAILY [facility] Last Admin: 04/17/20 09:57 Dose: 1 tab Documented by: Potassium Chloride (Klor-Con 10) 20 meq PO DAILY@0800 [facility] Last Admin: 04/17/20 09:56 Dose: 20 meq Documented by: Sodium Chloride (Saline Flush) 10 ml FLUSH ASDIRECTED PRN PRN Reason: Keep Vein Open Last Admin: 04/16/20 21:05 Dose: 10 ml Documented by: Discontinued Medications Acetaminophen (Tylenol) 650 mg PO NOW ONE Stop: 04/15/20 08:44 Last Admin: 04/15/20 08:52 Dose: 650 mg Documented by: Amlodipine Besylate (Norvasc) 2.5 mg PO DAILY [facility] Last Admin: 04/17/20 09:59 Dose: Not Given Documented by: Aspirin (Halfprin) 162 mg PO ONETIME ONE Stop: 04/15/20 12:34 Last Admin: 04/15/20 13:54 Dose: 162 mg Documented by: Clopidogrel Bisulfate (Plavix) 75 mg PO DAILY [facility] Last Admin: 04/17/20 10:00 Dose: Not Given Documented by: Diphtheria/Tetanus/Acell Pertussis (Boostrix) 0.5 ml IM .ONCE ONE Stop: 04/15/20 08:00 Last Admin: 04/15/20 08:37 Dose: 0.5 ml Documented by: Heparin Sodium (Porcine) (Heparin Sodium) 5,000 units SUBCUT Q8HR [facility] Last Admin: 04/17/20 06:13 Dose: 5,000 units Documented by: Sodium Chloride (Normal Saline) 1,000 mls @ 999 mls/hr IV .BOLUS ONE Stop: 04/15/20 09:00 Last Admin: 04/15/20 08:37 Dose: 999 mls/hr Documented by: Iopamidol (Isovue-370 (76%)) 100 ml IVPUSH ONETIME ONE Stop: 04/15/20 14:27 Last Admin: 04/15/20 15:28 Dose: 75 ml Documented by: Lidocaine/Epinephrine (Xylocaine 1% With Epinephrine 1:100,000) 20 ml INFILT ONETIME ONE Stop: 04/15/20 08:00 Last Admin: 04/15/20 08:37 Dose: 20 ml Documented by: Metoprolol Tartrate (Lopressor) 5 mg IVPUSH ONETIME ONE Stop: 04/17/20 09:43 Last Admin: 04/17/20 09:51 Dose: 5 mg Documented by: - Exam General: Alert, Oriented (x3), No Acute Distress HEENT: Mucous Membr. Moist/[place] Neck: Supple Lungs: Other (much improved, dec at bases, very mild wheeze) Cardiovascular: Regular Rate, Regular Rhythm, No Murmurs GI/Abdominal Exam: Normal Bowel Sounds, Non-Tender, No Distention. No: Guarding (Female) Exam: Other (diaz in place) Back Exam: Normal Inspection Extremities: No Pedal Edema Skin: Warm, Dry Neurological: No New Focal Deficit, Other (improved apraxia and weakness of LUE, mild left facial droop) - Patient Data Result Diagrams: 04/16/20 06:15 04/16/20 06:15 [facility] Results Last 24 hrs: Microbiology 04/15/20 10:00 Urine Culture - Final Urine, Voided Streptococcus Agalactiae Grp B Sepsis Event Note - Evaluation Sepsis Screening Result: No Definite Risk - Focused Exam Vital Signs: Vital Signs Temp Pulse Pulse Resp BP BP BP 04/17/20 09:51 118 H 141/69 H 04/17/20 08:18 97.8 F 82 20 128/64 04/17/20 04:00 98.1 F 77 16 128/67 04/17/20 00:00 97.8 F 70 16 111/57 L Pulse Ox 04/17/20 09:51 04/17/20 08:18 97 04/17/20 04:00 97 04/17/20 00:00 96 - Problem List Review Problem List Initiated/Reviewed/Updated: No - My Orders Last 24 Hours: My Active Orders 04/17/20 09:45 Apixaban [Eliquis] 5 mg PO BID 04/17/20 Lunch Heart Healthy Diet [DIET] Metoprolol Succinate [Toprol XL] 100 mg PO BID - Assessment Assessment:: #acute embolic right MCA stroke - confirmed right fronto-temporal infarction - CTA also w/ left vertebral occlusion - this lesion is unrelated to the acute CVA and likely chronic - d/w neuro at [facility] - today noted to be in afib - will stop plavix and start eliquis, c/w asa, high intensity statin - PT/OT per therapist - passed swallow eval - BP control #rapid afib - new dx - controlled acutely w/ 5 mg IVP lopressor - will restart her toprol xl 100 bid - start eliquis - d/w daughter and in agreement #HT - off permissive HT - restart BP meds sequentially #head laceration - tona to come out after 7-10 days #hypothyroidism - c/w levothyroxine PPX - d/c [facility] since starting eliquis Full code
[2020-04-17] MEDS: Metoprolol Succinate 50 MG Tab.ER PO SCH ×2 (10:59→20:38)
[2020-04-17] MEDS: atorvaSTATin 20 MG Tab PO SCH (20:38)
[2020-04-17] MEDS: Sodium Chloride 0.9% 10 ML Syringe FLUSH PRN (20:42)
[2020-04-17] MEDS: Acetaminophen 325 MG Tab PO PRN (20:46)
[2020-04-18] MEDS: Levothyroxine 50 MCG Tab PO SCH (06:06)
[2020-04-18] MEDS: Multivitamins, Therapeutic with Minerals Tab PO SCH (08:53)
[2020-04-18] MEDS: Aspirin 81 MG Tab.EC PO SCH (08:53)
[2020-04-18] MEDS: Potassium Chloride 10 MEQ Tab.ER PO SCH (08:53)
[2020-04-18] MEDS: Metoprolol Succinate 50 MG Tab.ER PO SCH (08:54)
[2020-04-18] MEDS: Apixaban 5 MG Tab PO SCH (08:54)
[2020-04-18] MEDS: Acetaminophen 325 MG Tab PO PRN (10:58)
[2020-04-18 12:06] VITALS: BP 106/63; PULSE 64
--- NOTE | 2020-04-18 18:30 | PCM.DCSUM1 ---
Discharge Summary - Hospital Course Free Text/Narrative:: 74F w/ pmh HT, prior syncope, hypothyroidism p/w fall. The pt felt suddenly dizzy and fell hitting her head and suffering a laceration. She denies any LOC. She managed to crawl to the phone and call her daughter. Hospital evaluation found pt had suffered a right MCA infarct. She had notable LUE weakness, apraxia and droop. 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 Telemetry monitoring revealed pt with paroxysmal afib. She was initiated on anticoagulation w/ eliquis. She made good progress w/ PT/OT and was converted to a Swing Bed for continued therapy. Diagnosis: Stroke: Yes Modified [place] Scale: Slight Disable;Unable to Carry Out Prev Act.Able to Look After Affairs Modified [place] Scale Score: 2 - Discharge Data Discharge Date: 04/18/20 Discharge Disposition: DC/Tfer W/I Hosp To Swing Condition: Good - Referral to Home Health Primary Care Physician: Polo Spencer MD - Patient Summary/Data Consults: Consultations 04/15/20 11:48 OT Evaluation and Treatment [CONS] Routine PT Evaluation and Treatment [CONS] Routine - Discharge Plan *PRESCRIPTION DRUG MONITORING PROGRAM REVIEWED*: Not Applicable *COPY OF PRESCRIPTION DRUG MONITORING REPORT IN PATIENT ELEAZAR: Not Applicable Home Medications: Home Meds Aspirin [Ecotrin EC] 81 mg PO DAILY 04/24/14 [History] Metoprolol Succinate [Toprol Xl] 100 mg PO BID 04/24/14 [History] Multivitamin/Iron/Folic Acid [Multi-Day Plus Iron Tablet] 1 tab PO DAILY 04/24/14 [History] Levothyroxine [Synthroid] 50 mcg PO ACBREAKFAST 04/15/20 [History] Potassium Chloride 20 meq PO DAILY 04/15/20 [History] Apixaban [Eliquis] 5 mg PO BID 04/18/20 [History] atorvaSTATin Calcium [Atorvastatin Calcium] 80 mg PO BEDTIME 04/18/20 [History] Referrals: Polo Spencer MD [Primary Care Provider] - - Discharge Summary/Plan Comment DC Time >30 min.: No (15 min) - Patient Data Vitals - Most Recent: Last Vital Signs Temp 97.9 F 04/18/20 12:04 Pulse 64 04/18/20 12:04 Resp 14 04/18/20 12:04 BP 106/63 04/18/20 12:04 Pulse Ox 100 04/18/20 12:04 Weight - Most Recent: 170 lb 3.2 oz I&O - Last 24 hours: Intake & Output 04/18/20 04/18/20 04/18/20 06:59 14:59 22:59 Intake Total 200 475 Balance 200 475 Lab Results - Last 24 hrs: Laboratory Results - last 24 hr 04/18/20 Range/Units 06:02 TSH, Ultra Sensitive 3.78 H (0.36-3.74) uIU/mL Med Orders - Current: Current Medications Discontinued Medications Acetaminophen (Tylenol) 650 mg PO NOW ONE Stop: 04/15/20 08:44 Last Admin: 04/15/20 08:52 Dose: 650 mg Documented by: Acetaminophen (Tylenol) 650 mg PO Q4H PRN PRN Reason: Pain (Mild 1-3)/fever Last Admin: 04/18/20 10:58 Dose: 650 mg Documented by: Amlodipine Besylate (Norvasc) 2.5 mg PO DAILY [facility] Last Admin: 04/17/20 09:59 Dose: Not Given Documented by: Apixaban (Eliquis) 5 mg PO BID [facility] Last Admin: 04/18/20 08:54 Dose: 5 mg Documented by: Aspirin (Halfprin) 81 mg PO DAILY [facility] Last Admin: 04/18/20 08:53 Dose: 81 mg Documented by: Aspirin (Halfprin) 162 mg PO ONETIME ONE Stop: 04/15/20 12:34 Last Admin: 04/15/20 13:54 Dose: 162 mg Documented by: Atorvastatin Calcium (Lipitor) 80 mg PO BEDTIME [facility] Last Admin: 04/17/20 20:38 Dose: 80 mg Documented by: Clopidogrel Bisulfate (Plavix) 75 mg PO DAILY [facility] Last Admin: 04/17/20 10:00 Dose: Not Given Documented by: Diphtheria/Tetanus/Acell Pertussis (Boostrix) 0.5 ml IM .ONCE ONE Stop: 04/15/20 08:00 Last Admin: 04/15/20 08:37 Dose: 0.5 ml Documented by: Heparin Sodium (Porcine) (Heparin Sodium) 5,000 units SUBCUT Q8HR [facility] Last Admin: 04/17/20 06:13 Dose: 5,000 units Documented by: Sodium Chloride (Normal Saline) 1,000 mls @ 999 mls/hr IV .BOLUS ONE Stop: 04/15/20 09:00 Last Admin: 04/15/20 08:37 Dose: 999 mls/hr Documented by: Iopamidol (Isovue-370 (76%)) 100 ml IVPUSH ONETIME ONE Stop: 04/15/20 14:27 Last Admin: 04/15/20 15:28 Dose: 75 ml Documented by: Levothyroxine Sodium (Synthroid) 50 mcg PO ACBREAKFAST [facility] Last Admin: 04/18/20 06:06 Dose: 50 mcg Documented by: Lidocaine/Epinephrine (Xylocaine 1% With Epinephrine 1:100,000) 20 ml INFILT ONETIME ONE Stop: 04/15/20 08:00 Last Admin: 04/15/20 08:37 Dose: 20 ml Documented by: Metoprolol Succinate (Toprol Xl) 100 mg PO BID [facility] Last Admin: 04/18/20 08:54 Dose: 100 mg Documented by: Metoprolol Tartrate (Lopressor) 5 mg IVPUSH ONETIME ONE Stop: 04/17/20 09:43 Last Admin: 04/17/20 09:51 Dose: 5 mg Documented by: Multivitamins/Minerals (Vitamins And Minerals) 1 tab PO DAILY [facility] Last Admin: 04/18/20 08:53 Dose: 1 tab Documented by: Potassium Chloride (Klor-Con 10) 20 meq PO DAILY@0800 [facility] Last Admin: 04/18/20 08:53 Dose: 20 meq Documented by: Sodium Chloride (Saline Flush) 10 ml FLUSH ASDIRECTED PRN PRN Reason: Keep Vein Open Last Admin: 04/17/20 20:42 Dose: 10 ml Documented by: - Exam Quality Assessment: Denies: Supplemental Oxygen General: Reports: Alert, Oriented HEENT: Reports: Pupils Equal Neck: Reports: Supple Lungs: Reports: Clear to Auscultation, Normal Respiratory Effort Cardiovascular: Reports: Irregular Rhythm GI/Abdominal Exam: Normal Bowel Sounds, Soft, Non-Tender, No Distention Back Exam: Reports: Normal Inspection Extremities: No Pedal Edema Skin: Reports: Warm, Dry Neurological: Reports: Other (mild apraxia and weakness LUE, mild left facial droop) Psy/Mental Status: Reports: Alert, Normal Affect, Normal Mood
== END 2020-04-18 14:30 | disposition swing bed (61) | DRG 66 ==
LOC: DL.ED 07:41 → DL.MS 10:19 → OBSVTOIN 11:48
PROVIDERS: ADMIT Internal Medicine; ATTEND Internal Medicine
DX: I63.411 Cerebral infarction due to embolism of right middle cerebral artery (principal); R55 Syncope and collapse; I65.02 Occlusion and stenosis of left vertebral artery; E03.9 Hypothyroidism, unspecified; H54.7 Unspecified visual loss; I48.91 Unspecified atrial fibrillation; I10 Essential (primary) hypertension; S01.01XA Laceration without foreign body of scalp, initial encounter; Z79.899 Other long term (current) drug therapy; R48.2 Apraxia; G83.24 Monoplegia of upper limb affecting left nondominant side; Z20.822 Contact with and (suspected) exposure to COVID-19; Z28.82 Immunization not carried out because of caregiver refusal; R40.2412 Glasgow coma scale score 13-15, at arrival to emergency department; Z88.0 Allergy status to penicillin; Z79.82 Long term (current) use of aspirin; W19.XXXA Unspecified fall, initial encounter
CPT/HCPCS: 12001 ×2; 36415; 70450; 71045; 72125; 80053; 80305; 80307; 81001; 82150; 83690; 84484; 85025; 85610; 85730; 86140; 87086; 87088; 87186; 93010; 99284; 99285; A9270; J7030; U0002; 70496; 70498; 70551; 80048; 80061; 83036; 83735; 84100; 84443; 85027; 90471; 90715; 92610-GN; 93306; 97110-GO; 97110-GP; 97116-GP; 97162-GP; 97166-GO; 97535-GO; J1644; J3490; Q9967

== ENCOUNTER 2020-04-18 11:02 | Inpatient (IN) | payer MEDICARE, OTHER ==
--- NOTE | 2020-04-18 18:37 | PCM.HP ---
H&P History of Present Illness - General Date of Service: 04/18/20 Admit Problem/Dx: Admission Diagnosis/Problem Admission Diagnosis/Problem Stroke due to embolism of right middle cerebral artery - History of Present Illness Initial Comments - Free Text/Narative: 74F w/ pmh HT, prior syncope, hypothyroidism p/w fall. The pt felt suddenly dizzy and fell hitting her head and suffering a laceration. She denies any LOC. She managed to crawl to the phone and call her daughter. Hospital evaluation found pt had suffered a right MCA infarct. She had notable LUE weakness, apraxia and droop. 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 Telemetry monitoring revealed pt with paroxysmal afib. She was initiated on anticoagulation w/ eliquis. She made good progress w/ PT/OT and was converted to a Swing Bed for continued therapy. - Related Data Allergies/Adverse Reactions: Allergies Allergy/AdvReac Type Severity Reaction Status Date / Time Penicillins Allergy Anaphylactic Verified 04/18/20 12:35 Shock Home Medications: Home Meds Aspirin [Ecotrin EC] 81 mg PO DAILY 04/24/14 [History] Metoprolol Succinate [Toprol Xl] 100 mg PO BID 04/24/14 [History] Multivitamin/Iron/Folic Acid [Multi-Day Plus Iron Tablet] 1 tab PO DAILY 04/24/14 [History] Levothyroxine [Synthroid] 50 mcg PO ACBREAKFAST 04/15/20 [History] Potassium Chloride 20 meq PO DAILY 04/15/20 [History] Apixaban [Eliquis] 5 mg PO BID 04/18/20 [History] atorvaSTATin Calcium [Atorvastatin Calcium] 80 mg PO BEDTIME 04/18/20 [History] Past Medical History HEENT History: Reports: Impaired Vision Cardiovascular History: Reports: Hypertension, Syncope Respiratory History: Reports: None Gastrointestinal History: Reports: None Genitourinary History: Reports: None [employer] History: Reports: Musculoskeletal History: Reports: None Neurological History: Reports: None Psychiatric History: Reports: None Endocrine/Metabolic History: Reports: Hypothyroidism Hematologic History: Reports: None Immunologic History: Reports: None Oncologic (Cancer) History: Reports: None Dermatologic History: Reports: None - Infectious Disease History Infectious Disease History: Reports: Novel Coronavirus - Past Surgical History Female Surgical History: Reports: None Neurological Surgical History: Reports: None Social & Family History - Family History Family Medical History: No Pertinent Family History - Tobacco Use Tobacco Use Status *Q: Never Tobacco User Second Hand Smoke Exposure: No - Caffeine Use Caffeine Use: Reports: Coffee - Recreational Drug Use Recreational Drug Use: No - Living Situation & Occupation Living situation: Reports: , Alone Occupation: Employed H&P Review of Systems - Review of Systems: Review Of Systems: See Below General: Reports: No Symptoms. Denies: Fever HEENT: Reports: No Symptoms. Denies: Dysphasia Pulmonary: Reports: No Symptoms. Denies: Shortness of Breath Cardiovascular: Reports: No Symptoms. Denies: Palpitations Gastrointestinal: Reports: No Symptoms. Denies: Abdominal Pain Genitourinary: Reports: No Symptoms. Denies: Dysuria Musculoskeletal: Reports: No Symptoms. Denies: Neck Pain Skin: Reports: No Symptoms. Denies: Diaphoresis Psychiatric: Reports: No Symptoms. Denies: Confusion Neurological: Reports: Other (left hand weakness) Exam - Exam Exam: See Below - Exam Quality Assessment: No: Supplemental Oxygen General: Alert, Oriented HEENT: Conjunctiva Clear Neck: Supple Lungs: Clear to Auscultation, Normal Respiratory Effort Cardiovascular: Regular Rate, Regular Rhythm Back Exam: No: Normal Inspection Extremities: No Pedal Edema Skin: Warm, Dry, Intact Neurological: Other (LUE weakness mild) Neuro Extensive - Mental Status: Alert, Oriented x3, Normal Mood/Affect, Normal Cognition Neuro Extensive - Motor, Sensory, Reflexes: Pronator Drift (L) Psychiatric: Normal Mood Problem List Initiated/Reviewed/Updated: No Orders Last 24hrs: Active Orders 24 hr Category Date Time Status Admission Status [Patient Status] [ADT] Routine ADT 04/18/20 15:38 Active Activity as Tolerated [RC] .Routine Care 04/18/20 15:37 Active Antiembolic Devices [RC] PER UNIT ROUTINE Care 04/18/20 15:37 Active VTE/DVT Education [RC] Care 04/18/20 15:37 Active OT Evaluation and Treatment [CONS] Routine Cons 04/18/20 15:37 Active PT Evaluation and Treatment [CONS] Routine Cons 04/18/20 15:37 Active Heart Healthy Diet [DIET] Diet 03/04/21 Lunch Active Acetaminophen [TylenoL] Med 04/18/20 15:37 Active 650 mg PO Q4H PRN Apixaban [Eliquis] Med 04/18/20 21:00 Active 5 mg PO BID Aspirin [Halfprin] Med 04/19/20 09:00 Active 81 mg PO DAILY Levothyroxine [Synthroid] Med 04/19/20 06:00 Active 50 mcg PO ACBREAKFAST Metoprolol Succinate [Toprol XL] Med 04/18/20 21:00 Active 100 mg PO BID Multivitamins/Minerals [Vitamins and Minerals] Med 04/19/20 09:00 Active 1 tab PO DAILY Potassium Chloride [Klor-Con 10] Med 04/19/20 08:00 Active 20 meq PO DAILY@0800 atorvaSTATin [Lipitor] Med 04/18/20 21:00 Active 80 mg PO BEDTIME Sequential Compression Device [OM.PC] Per Unit Routine Oth 04/18/20 15:37 Ordered Resuscitation Status Routine Resus Stat 04/18/20 15:37 Ordered Medication Orders Acetaminophen (Tylenol) 650 mg PO Q4H PRN PRN Reason: Pain (Mild 1-3)/fever Apixaban (Eliquis) 5 mg PO BID [facility] Aspirin (Halfprin) 81 mg PO DAILY [facility] Atorvastatin Calcium (Lipitor) 80 mg PO BEDTIME [facility] Levothyroxine Sodium (Synthroid) 50 mcg PO ACBREAKFAST [facility] Metoprolol Succinate (Toprol Xl) 100 mg PO BID [facility] Multivitamins/Minerals (Vitamins And Minerals) 1 tab PO DAILY [facility] Potassium Chloride (Klor-Con 10) 20 meq PO DAILY@0800 [facility] Assessment/Plan Comment:: #s/p R MCA embolic stroke - c/w asa, eliquis, statin - OT/PT per therapist #afib - c/w toprol 100 bid and eliquis #HT - restart home meds as needed #hypothyroidism - c/w levothyroxine #head laceration - tona to be removed after 7-10 days PPX - on a/c Full code
[2020-04-18] MEDS: atorvaSTATin 20 MG Tab PO SCH (20:48)
[2020-04-18] MEDS: Acetaminophen 325 MG Tab PO PRN (20:49)
[2020-04-18] MEDS: Metoprolol Succinate 50 MG Tab.ER PO SCH (20:49)
[2020-04-18] MEDS: Apixaban 5 MG Tab PO SCH (20:50)
[2020-04-19] MEDS: Levothyroxine 50 MCG Tab PO SCH (05:00)
[2020-04-19] MEDS: Acetaminophen 325 MG Tab PO PRN ×2 (05:00→20:34)
[2020-04-19] MEDS: Aspirin 81 MG Tab.EC PO SCH (10:04)
[2020-04-19] MEDS: Metoprolol Succinate 50 MG Tab.ER PO SCH ×2 (10:07→20:32)
[2020-04-19] MEDS: Multivitamins, Therapeutic with Minerals Tab PO SCH (10:08)
[2020-04-19] MEDS: Potassium Chloride 10 MEQ Tab.ER PO SCH (10:08)
[2020-04-19] MEDS: Apixaban 5 MG Tab PO SCH ×2 (10:08→20:34)
[2020-04-19] MEDS: atorvaSTATin 20 MG Tab PO SCH (20:32)
[2020-04-20] MEDS: Levothyroxine 50 MCG Tab PO SCH (05:08)
[2020-04-20] MEDS: Multivitamins, Therapeutic with Minerals Tab PO SCH (08:50)
[2020-04-20] MEDS: Potassium Chloride 10 MEQ Tab.ER PO SCH (08:50)
[2020-04-20] MEDS: Metoprolol Succinate 50 MG Tab.ER PO SCH ×2 (08:51→20:00)
[2020-04-20] MEDS: Aspirin 81 MG Tab.EC PO SCH (08:52)
[2020-04-20] MEDS: amLODIPine 5 MG Tab PO SCH (08:52)
[2020-04-20] MEDS: Apixaban 5 MG Tab PO SCH ×2 (08:52→20:00)
[2020-04-20] MEDS: Acetaminophen 325 MG Tab PO PRN ×2 (08:53→19:52)
[2020-04-20] MEDS: atorvaSTATin 20 MG Tab PO SCH (19:59)
[2020-04-21] MEDS: Levothyroxine 50 MCG Tab PO SCH (06:09)
[2020-04-21] MEDS: Apixaban 5 MG Tab PO SCH ×2 (09:19→20:44)
[2020-04-21] MEDS: Aspirin 81 MG Tab.EC PO SCH (09:20)
[2020-04-21] MEDS: Potassium Chloride 10 MEQ Tab.ER PO SCH (09:20)
[2020-04-21] MEDS: Multivitamins, Therapeutic with Minerals Tab PO SCH (09:20)
[2020-04-21] MEDS: amLODIPine 5 MG Tab PO SCH (09:22)
[2020-04-21] MEDS: Metoprolol Succinate 50 MG Tab.ER PO SCH ×2 (09:22→20:44)
[2020-04-21] MEDS: Acetaminophen 325 MG Tab PO PRN (12:44)
[2020-04-21] MEDS: atorvaSTATin 20 MG Tab PO SCH (20:43)
[2020-04-22] MEDS: Acetaminophen 325 MG Tab PO PRN ×3 (02:21→22:22)
[2020-04-22] MEDS: Levothyroxine 50 MCG Tab PO SCH (05:46)
[2020-04-22 06:51] LABS: ANION GAP 13.5 mEq/L (7-13); CHLORIDE,CL 105 mmol/L (98-107); SODIUM,NA 143 mmol/L (136-145)
[2020-04-22] MEDS: Potassium Chloride 10 MEQ Tab.ER PO SCH (08:12)
[2020-04-22] MEDS: Aspirin 81 MG Tab.EC PO SCH (08:13)
[2020-04-22] MEDS: Metoprolol Succinate 50 MG Tab.ER PO SCH ×2 (08:13→20:59)
[2020-04-22] MEDS: Apixaban 5 MG Tab PO SCH ×2 (08:13→20:59)
[2020-04-22] MEDS: amLODIPine 5 MG Tab PO SCH (08:14)
[2020-04-22] MEDS: Multivitamins, Therapeutic with Minerals Tab PO SCH (08:15)
--- NOTE | 2020-04-22 10:57 | PCM.PN ---
- General Info Date of Service: 04/22/20 Admission Dx/Problem (Free Text): Improving gait and LUE dexterity. - Review of Systems Systems Review Comment:: Negative for 14 systems except as specifically noted above. - Patient Data Vitals - Most Recent: Last Vital Signs Temp 97.8 F 04/22/20 07:49 Pulse 55 L 04/22/20 08:13 Resp 18 04/22/20 07:49 BP 142/61 H 04/22/20 08:14 Pulse Ox 97 04/22/20 07:49 Weight - Most Recent: 163 lb 9.6 oz I&O - Last 24 Hours: Intake & Output 04/21/20 04/22/20 04/22/20 22:59 06:59 14:59 Intake Total 890 400 Balance 890 400 Lab Results Last 24 Hours: Laboratory Results - last 24 hr 04/22/20 Range/Units 05:40 Sodium 143 (136-145) mmol/L Potassium 4.5 (3.5-5.1) mmol/L Chloride 105 (98-107) mmol/L Carbon Dioxide 29 (21-32) mmol/L Anion Gap 13.5 H (7-13) mEq/L BUN 17 (7-18) mg/dL Creatinine 0.82 (0.55-1.02) mg/dL Est Cr Clr Drug Dosing 55.49 mL/min Estimated GFR (MDRD) > 60 Glucose 83 (74-99) mg/dL Calcium 8.5 (8.5-10.1) mg/dL Med Orders - Current: Current Medications Acetaminophen (Tylenol) 650 mg PO Q4H PRN PRN Reason: Pain (Mild 1-3)/fever Last Admin: 04/22/20 08:20 Dose: 650 mg Documented by: Amlodipine Besylate (Norvasc) 2.5 mg PO DAILY [facility] Last Admin: 04/22/20 08:14 Dose: 2.5 mg Documented by: Apixaban (Eliquis) 5 mg PO BID [facility] Last Admin: 04/22/20 08:13 Dose: 5 mg Documented by: Aspirin (Halfprin) 81 mg PO DAILY [facility] Last Admin: 04/22/20 08:13 Dose: 81 mg Documented by: Atorvastatin Calcium (Lipitor) 80 mg PO BEDTIME [facility] Last Admin: 04/21/20 20:43 Dose: 80 mg Documented by: Levothyroxine Sodium (Synthroid) 50 mcg PO ACBREAKFAST [facility] Last Admin: 04/22/20 05:46 Dose: 50 mcg Documented by: Metoprolol Succinate (Toprol Xl) 100 mg PO BID [facility] Last Admin: 04/22/20 08:13 Dose: 100 mg Documented by: Multivitamins/Minerals (Vitamins And Minerals) 1 tab PO DAILY [facility] Last Admin: 04/22/20 08:15 Dose: 1 tab Documented by: Potassium Chloride (Klor-Con 10) 20 meq PO DAILY@0800 [facility] Last Admin: 04/22/20 08:12 Dose: 20 meq Documented by: - Exam Quality Assessment: No: Supplemental Oxygen General: Alert, Oriented, Cooperative HEENT: Pupils Equal Neck: Supple Lungs: Clear to Auscultation, Normal Respiratory Effort Cardiovascular: Regular Rate, Irregular Rhythm GI/Abdominal Exam: Normal Bowel Sounds, Soft, Non-Tender, No Distention Back Exam: Normal Inspection Extremities: No Pedal Edema Skin: Warm, Dry, Intact Neurological: No New Focal Deficit Psy/Mental Status: Alert, Normal Affect, Normal Mood - Patient Data Lab Results Last 24 hrs: Laboratory Results - last 24 hr 04/22/20 Range/Units 05:40 Sodium 143 (136-145) mmol/L Potassium 4.5 (3.5-5.1) mmol/L Chloride 105 (98-107) mmol/L Carbon Dioxide 29 (21-32) mmol/L Anion Gap 13.5 H (7-13) mEq/L BUN 17 (7-18) mg/dL Creatinine 0.82 (0.55-1.02) mg/dL Est Cr Clr Drug Dosing 55.49 mL/min Estimated GFR (MDRD) > 60 Glucose 83 (74-99) mg/dL Calcium 8.5 (8.5-10.1) mg/dL Result Diagrams: 04/22/20 05:40 Sepsis Event Note - Evaluation Sepsis Screening Result: No Definite Risk - Focused Exam Vital Signs: Vital Signs Temp Pulse Pulse Resp BP BP Pulse Ox 04/22/20 08:14 142/61 H 04/22/20 08:13 55 L 142/61 H 04/22/20 07:49 97.8 F 55 L 18 142/61 H 97 - Problem List Review Problem List Initiated/Reviewed/Updated: No - Plan Plan:: #s/p R MCA embolic stroke - c/w asa, eliquis, statin - OT/PT per therapist #afib - c/w toprol 100 bid and eliquis #HT - restart home meds as needed - currently on toprol and amlo 2.5 #hypothyroidism - c/w levothyroxine #head laceration - tona to be removed after 7-10 days PPX - on a/c Full code
[2020-04-22] MEDS: atorvaSTATin 20 MG Tab PO SCH (20:59)
[2020-04-23] MEDS ORDERED: Levothyroxine 50 MCG Tab PO ONE (06:00)
[2020-04-23] MEDS: Potassium Chloride 10 MEQ Tab.ER PO SCH (09:27)
[2020-04-23] MEDS: Aspirin 81 MG Tab.EC PO SCH (09:27)
[2020-04-23] MEDS: Apixaban 5 MG Tab PO SCH ×2 (09:27→20:44)
[2020-04-23] MEDS: amLODIPine 5 MG Tab PO SCH (09:28)
[2020-04-23] MEDS: Metoprolol Succinate 50 MG Tab.ER PO SCH ×2 (09:28→20:44)
[2020-04-23] MEDS: Multivitamins, Therapeutic with Minerals Tab PO SCH (09:29)
[2020-04-23] MEDS: Levothyroxine 50 MCG Tab PO SCH (15:45)
[2020-04-23] MEDS: Acetaminophen 325 MG Tab PO PRN (19:38)
[2020-04-23] MEDS: atorvaSTATin 20 MG Tab PO SCH (20:44)
[2020-04-24] MEDS: Levothyroxine 50 MCG Tab PO SCH (05:30)
[2020-04-24] MEDS: Apixaban 5 MG Tab PO SCH ×2 (08:26→21:02)
[2020-04-24] MEDS: Potassium Chloride 10 MEQ Tab.ER PO SCH (08:26)
[2020-04-24] MEDS: Multivitamins, Therapeutic with Minerals Tab PO SCH (08:26)
[2020-04-24] MEDS: Aspirin 81 MG Tab.EC PO SCH (08:26)
[2020-04-24] MEDS: Metoprolol Succinate 50 MG Tab.ER PO SCH ×2 (08:27→21:03)
[2020-04-24] MEDS: amLODIPine 5 MG Tab PO SCH (08:27)
[2020-04-24] MEDS: Acetaminophen 325 MG Tab PO PRN ×2 (09:52→21:03)
[2020-04-24] MEDS: atorvaSTATin 20 MG Tab PO SCH (21:02)
[2020-04-25] MEDS: Levothyroxine 50 MCG Tab PO SCH (05:31)
[2020-04-25] MEDS: Multivitamins, Therapeutic with Minerals Tab PO SCH (08:00)
[2020-04-25] MEDS: Aspirin 81 MG Tab.EC PO SCH (08:00)
[2020-04-25] MEDS: Apixaban 5 MG Tab PO SCH ×2 (08:00→20:58)
[2020-04-25] MEDS: Potassium Chloride 10 MEQ Tab.ER PO SCH (08:00)
[2020-04-25] MEDS: amLODIPine 5 MG Tab PO SCH (08:00)
[2020-04-25] MEDS: Metoprolol Succinate 50 MG Tab.ER PO SCH ×2 (08:01→20:58)
[2020-04-25] MEDS: Acetaminophen 325 MG Tab PO PRN (14:42)
[2020-04-25] MEDS: atorvaSTATin 20 MG Tab PO SCH (20:57)
[2020-04-26] MEDS: Levothyroxine 50 MCG Tab PO SCH (06:18)
[2020-04-26] MEDS: amLODIPine 5 MG Tab PO SCH (10:00)
[2020-04-26] MEDS: Apixaban 5 MG Tab PO SCH ×2 (10:04→21:05)
[2020-04-26] MEDS: Potassium Chloride 10 MEQ Tab.ER PO SCH (10:04)
[2020-04-26] MEDS: Aspirin 81 MG Tab.EC PO SCH (10:04)
[2020-04-26] MEDS: Multivitamins, Therapeutic with Minerals Tab PO SCH (10:04)
[2020-04-26] MEDS: Metoprolol Succinate 50 MG Tab.ER PO SCH ×2 (10:05→21:07)
[2020-04-26] MEDS: atorvaSTATin 20 MG Tab PO SCH (21:06)
[2020-04-27] MEDS: Levothyroxine 50 MCG Tab PO SCH (05:28)
[2020-04-27] MEDS: amLODIPine 5 MG Tab PO SCH (08:36)
[2020-04-27] MEDS: Multivitamins, Therapeutic with Minerals Tab PO SCH (08:36)
[2020-04-27] MEDS: Aspirin 81 MG Tab.EC PO SCH (08:36)
[2020-04-27] MEDS: Metoprolol Succinate 50 MG Tab.ER PO SCH ×2 (08:37→20:21)
[2020-04-27] MEDS: Apixaban 5 MG Tab PO SCH ×2 (08:37→20:21)
[2020-04-27] MEDS: Potassium Chloride 10 MEQ Tab.ER PO SCH (08:37)
[2020-04-27] MEDS: Acetaminophen 325 MG Tab PO PRN (14:25)
[2020-04-27] MEDS: atorvaSTATin 20 MG Tab PO SCH (20:21)
[2020-04-28] MEDS: Levothyroxine 50 MCG Tab PO SCH (06:05)
[2020-04-28] MEDS: Multivitamins, Therapeutic with Minerals Tab PO SCH (08:14)
[2020-04-28] MEDS: Potassium Chloride 10 MEQ Tab.ER PO SCH (08:14)
[2020-04-28] MEDS: Aspirin 81 MG Tab.EC PO SCH (08:14)
[2020-04-28] MEDS: Apixaban 5 MG Tab PO SCH ×2 (08:14→21:24)
[2020-04-28] MEDS: amLODIPine 5 MG Tab PO SCH (08:15)
[2020-04-28] MEDS: Metoprolol Succinate 50 MG Tab.ER PO SCH ×2 (08:15→21:23)
[2020-04-28] MEDS: atorvaSTATin 20 MG Tab PO SCH (21:24)
[2020-04-29] MEDS: Levothyroxine 50 MCG Tab PO SCH (05:34)
[2020-04-29 07:54] VITALS: BP 122/71; PULSE 56
[2020-04-29] MEDS: Metoprolol Succinate 50 MG Tab.ER PO SCH (08:43)
[2020-04-29] MEDS: Aspirin 81 MG Tab.EC PO SCH (08:43)
[2020-04-29] MEDS: Potassium Chloride 10 MEQ Tab.ER PO SCH (08:43)
[2020-04-29] MEDS: amLODIPine 5 MG Tab PO SCH (08:44)
[2020-04-29] MEDS: Multivitamins, Therapeutic with Minerals Tab PO SCH (08:45)
[2020-04-29] MEDS: Apixaban 5 MG Tab PO SCH (08:45)
--- NOTE | 2020-04-29 14:36 | PCM.DCSUM1 ---
Discharge Summary - Hospital Course Free Text/Narrative:: 74F w/ pmh HT, prior syncope, hypothyroidism p/w fall. The pt felt suddenly dizzy and fell hitting her head and suffering a laceration. She denies any LOC. She managed to crawl to the phone and call her daughter. Hospital evaluation found pt had suffered a right MCA infarct. She had notable LUE weakness, apraxia and droop. 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 Telemetry monitoring revealed pt with paroxysmal afib. She was initiated on anticoagulation w/ eliquis. She made good progress w/ PT/OT and was converted to a Swing Bed for continued therapy. - Discharge Data Discharge Date: 04/29/20 Discharge Disposition: Home, Self-Care 01 Condition: Good - Referral to Home Health Date of Face to Face Encounter: 04/29/20 Primary Care Physician: Polo Spencer MD - Patient Summary/Data Consults: Consultations 04/18/20 15:37 OT Evaluation and Treatment [CONS] Routine PT Evaluation and Treatment [CONS] Routine - Discharge Plan Prescriptions/Med Rec: Apixaban [Eliquis] 5 mg PO BID #60 tab atorvaSTATin [Lipitor] 80 mg PO BEDTIME #30 tab amLODIPine [Norvasc] 2.5 mg PO DAILY #15 tablet Metoprolol Succinate [Toprol XL 100mg] 100 mg PO BID #60 tab.er Home Medications: Home Meds Aspirin [Ecotrin EC] 81 mg PO DAILY 04/24/14 [History] Multivitamin/Iron/Folic Acid [Multi-Day Plus Iron Tablet] 1 tab PO DAILY 04/24/14 [History] Levothyroxine [Synthroid] 50 mcg PO ACBREAKFAST 04/15/20 [History] Acetaminophen [Tylenol] 650 mg PO Q4H PRN tablet 04/29/20 [Rx] Apixaban [Eliquis] 5 mg PO BID #60 tab 04/29/20 [Rx] Metoprolol Succinate [Toprol XL 100mg] 100 mg PO BID #60 tab.er 04/29/20 [Rx] amLODIPine [Norvasc] 2.5 mg PO DAILY #15 tablet 04/29/20 [Rx] atorvaSTATin [Lipitor] 80 mg PO BEDTIME #30 tab 03/15/21 [Rx] Patient Handouts: Metoprolol extended-release tablets, Atorvastatin tablets, Amlodipine Oral Tablets, Apixaban oral tablets - Discharge Summary/Plan Comment DC Time >30 min.: Yes (35 min) - Patient Data Vitals - Most Recent: Last Vital Signs Temp 96.9 F 04/29/20 07:50 Pulse 56 L 04/29/20 08:43 Resp 20 04/29/20 07:50 BP 122/71 04/29/20 08:44 Pulse Ox 97 04/29/20 07:50 Weight - Most Recent: 164 lb Med Orders - Current: Current Medications Discontinued Medications Acetaminophen (Acetaminophen 325 Mg Tab) 650 mg PO Q4H PRN PRN Reason: Pain (Mild 1-3)/fever Last Admin: 04/27/20 14:25 Dose: 650 mg Documented by: Amlodipine Besylate (Amlodipine 5 Mg Tab) 2.5 mg PO DAILY [facility] Last Admin: 04/29/20 08:44 Dose: 2.5 mg Documented by: Apixaban (Apixaban 5 Mg Tab) 5 mg PO BID [facility] Last Admin: 04/29/20 08:45 Dose: 5 mg Documented by: Aspirin (Aspirin 81 Mg Tab.Ec) 81 mg PO DAILY [facility] Last Admin: 04/29/20 08:43 Dose: 81 mg Documented by: Atorvastatin Calcium (Atorvastatin 20 Mg Tab) 80 mg PO BEDTIME [facility] Last Admin: 04/28/20 21:24 Dose: 80 mg Documented by: Levothyroxine Sodium (Levothyroxine 50 Mcg Tab) 50 mcg PO ACBREAKFAST [facility] Last Admin: 04/29/20 05:34 Dose: 50 mcg Documented by: Metoprolol Succinate (Metoprolol Succinate 50 Mg Tab.Er) 100 mg PO BID [facility] Last Admin: 04/29/20 08:43 Dose: 100 mg Documented by: Multivitamins/Minerals (Multivitamins, Therapeutic With Minerals Tab) 1 tab PO DAILY [facility] Last Admin: 04/29/20 08:45 Dose: 1 tab Documented by: Potassium Chloride (Potassium Chloride 10 Meq Tab.Er) 20 meq PO DAILY@0800 [facility] Last Admin: 04/29/20 08:43 Dose: 20 meq Documented by: - Exam Quality Assessment: Denies: Supplemental Oxygen General: Reports: Alert, Oriented, Cooperative HEENT: Reports: Pupils Equal, Pupils Reactive Neck: Reports: Supple Lungs: Reports: Clear to Auscultation, Normal Respiratory Effort Cardiovascular: Reports: Regular Rate, Regular Rhythm, No Murmurs GI/Abdominal Exam: Normal Bowel Sounds, Soft, Non-Tender, No Distention Back Exam: Reports: Normal Inspection Extremities: No Pedal Edema Skin: Reports: Warm, Dry Neurological: Reports: No New Focal Deficit Psy/Mental Status: Reports: Alert, Normal Affect, Normal Mood
== END 2020-04-29 13:50 | disposition home or self-care (01) | DRG 57 ==
LOC: DL.MS 14:30
PROVIDERS: ADMIT Internal Medicine; ATTEND Internal Medicine
DX: I69.354 Hemiplegia and hemiparesis following cerebral infarction affecting left non-dominant side (principal); E03.9 Hypothyroidism, unspecified; H54.7 Unspecified visual loss; I48.91 Unspecified atrial fibrillation; Z79.899 Other long term (current) drug therapy; Z79.890 Hormone replacement therapy; Z79.82 Long term (current) use of aspirin; Z88.0 Allergy status to penicillin; S01.91XD Laceration without foreign body of unspecified part of head, subsequent encounter; Z79.01 Long term (current) use of anticoagulants; I69.992 Facial weakness following unspecified cerebrovascular disease; I69.990 Apraxia following unspecified cerebrovascular disease
CPT/HCPCS: 36415; 80048; 82962; 97110-GO; 97110-GP; 97112-GP; 97116-GP; 97140-GP; 97162-GP; 97165-GO; 97530-GO; 97535-GO; A9270-GY

== ENCOUNTER 2021-09-24 05:08 | Emergency (ER) | payer MEDICARE ==
[2021-09-24 05:24] VITALS: BP 145/67; PULSE 97
[2021-09-24 06:42] LABS: ANION GAP 10.9 mEq/L (7-13); CHLORIDE,CL 107 mmol/L (98-107); SODIUM,NA 144 mmol/L (136-145)
[2021-09-24 06:44] LABS: ESTIMATED GFR 61 mL/min (>=60)
[2021-09-24 06:50] LABS: PTT,PARTIAL THROMBOPLSTIN TIME 22.5 SEC (22.0-34.0)
[2021-09-24] MEDS: Pantoprazole 40 MG Vial IVPUSH ONE (07:34)
[2021-09-24] MEDS: Magnesium Sulfate/Water 2 GM in Premix Bag 1 BAG IV ONE (07:47)
[2021-09-24] MEDS: Sodium Chloride 0.9% 1,000 ML IV SCH (08:00)
[2021-09-24 08:01] LABS: AMPHETAMINES,URINE NEGATIVE (NEGATIVE); BARBITURATES,URINE NEGATIVE (NEGATIVE); BENZODIAZEPINE,URINE NEGATIVE (NEGATIVE); MDMA (ECSTASY), URINE NEGATIVE (NEGATIVE); METHADONE,URINE NEGATIVE (NEGATIVE); METHAMPHETAMINES,URINE NEGATIVE (NEGATIVE); OPIATES,URINE NEGATIVE (NEGATIVE); OXYCODONE,URINE NEGATIVE (NEGATIVE); PHENCYCLIDINE,URINE NEGATIVE (NEGATIVE); TCA,URINE NEGATIVE (NEGATIVE)
[2021-09-24] MEDS: Pantoprazole 40 MG in Sodium Chloride 0.9% 100 ML IV SCH (08:01)
== END 2021-09-24 11:53 ==
LOC: DL.ED 05:08
DX: S09.90XA Unspecified injury of head, initial encounter (principal); I95.1 Orthostatic hypotension; K92.2 Gastrointestinal hemorrhage, unspecified; I10 Essential (primary) hypertension; I48.91 Unspecified atrial fibrillation; E03.9 Hypothyroidism, unspecified; Z79.01 Long term (current) use of anticoagulants; Z86.73 Personal history of transient ischemic attack (TIA), and cerebral infarction without residual deficits; Z88.0 Allergy status to penicillin; Z79.82 Long term (current) use of aspirin; Z79.899 Other long term (current) drug therapy; Z86.16 Personal history of COVID-19; Z20.822 Contact with and (suspected) exposure to COVID-19; W18.09XA Striking against other object with subsequent fall, initial encounter; Y92.009 Unspecified place in unspecified non-institutional (private) residence as the place of occurrence of the external cause
CPT/HCPCS: 36415; 70450; 72125; 80053; 80305-QW; 80307; 81001; 82140; 82272; 82947; 83605; 83735; 84443; 84484; 85025; 85610; 85730; 86140; 87086; 93005; 96365; 96366; 96367; 96376; 99285-25; C9113; J3475; J7030; U0002

== ENCOUNTER 2024-10-14 14:47 | Emergency (ER) | payer MEDICARE ==
[2024-10-14] MEDS ORDERED: Sodium Chloride 0.9% 10 ML Syringe FLUSH PRN (15:13)
[2024-10-14 15:32] LABS: BASOPHILS PERCENT AUTO 0.1 % (0.0-1.0); EOSINOPHILS PERCENT AUTO 0.7 % (1.0-3.0); LYMPHOCYTES PERCENT AUTO 10.7 % (20.5-50.1); MONOCYTES PERCENT AUTO 23.5 % (2-8); NEUTROPHILS PERCENT AUTO 65.0 % (42.2-75.2); PLATELET COUNT,PLT 214 10^3/uL (150-450); RED BLOOD CELL COUNT 3.92 10^6/uL (4.2-5.4); WHITE BLOOD CELL COUNT,WBC 7.3 10^3/uL (5.0-10.0)
[2024-10-14 15:54] LABS: A/G RATIO 1.0; ALANINE AMINOTRANSFERASE,ALT 23.0 U/L (14-59); ASPARTATE AMNIOTRANSFERASE,AST 22.0 U/L (15-37); BILIRUBIN TOTAL 0.5 mg/dL (0.2-1.0); BLOOD UREA NITROGEN,BUN 6.0 mg/dL (7-18); CARBON DIOXIDE,CO2 29.0 mmol/L (21-32); CHLORIDE,CL 94.0 mmol/L (98-107); CREATININE 0.84 mg/dL (0.55-1.02); EST CRCL DRUG DOSING (CG) 50.0 mL/min; ESTIMATED GFR 70.0 mL/min (>=60); GLUCOSE RANDOM 131.0 mg/dL (70-99); POTASSIUM,K 2.9 mmol/L (3.5-5.1); PROTEIN TOTAL,TP 7.5 g/dL (6.4-8.2); SODIUM,NA 132.0 mmol/L (136-145)
[2024-10-14] MEDS: Take Home: Potassium Chloride 10 MEQ Tab, 10 Tab Pack PO ONE (16:32)
[2024-10-14] MEDS: Potassium Chloride 10 MEQ Tab.ER PO ONE (16:32)
[2024-10-14 16:48] VITALS: BP 153/70; PULSE 80
== END 2024-10-14 16:38 | disposition home or self-care (01) ==
LOC: DL.ED 14:47
DX: J98.9 Respiratory disorder, unspecified (principal); B97.89 Other viral agents as the cause of diseases classified elsewhere; I48.91 Unspecified atrial fibrillation; I10 Essential (primary) hypertension; E78.00 Pure hypercholesterolemia, unspecified; E03.9 Hypothyroidism, unspecified; Z86.16 Personal history of COVID-19; Z88.0 Allergy status to penicillin; Z79.82 Long term (current) use of aspirin; Z79.01 Long term (current) use of anticoagulants; Z79.890 Hormone replacement therapy; Z79.899 Other long term (current) drug therapy
CPT/HCPCS: 36415; 80053; 83735; 84484; 85025; 86140; 93005; 99284; A9270; 93010